=== PATIENT | male | born 1940 | race Caucasian/White ===

== ENCOUNTER 2016-10-13 07:42 | Inpatient (IN) ==
[2016-10-13] MEDS ORDERED: 0.9 % Sodium Chloride 1,000 ML IVC ONE ×3 (07:50→08:21)
[2016-10-13 07:59] LABS: Basophils # 0.1 K/mcL (0.0-0.2); Basophils % 0.4 %; Eosinophils % 0.2 %; Hematocrit 41.8 % (37.5-50.1); Hemoglobin 13.4 g/dL (12.9-16.9); Immature Granulocytes % 1.4 % (0-4); Lymphocytes # 1.7 K/mcL (0.6-4.6); Lymphocytes % 13.5 %; Mean Corpuscular HGB Conc 32.1 g/dL (31.6-35.5); Mean Corpuscular Hemoglobin 29.6 pg (28.0-33.3); Mean Corpuscular Volume 92.3 fL (83.0-100.0); Mean Platelet Volume 10.9 fL (9.4-12.4); Monocytes # 0.8 K/mcL (0.0-1.3); Monocytes % 6.2 %; Neutrophils # 9.8 K/mcL (1.6-8.9); Platelet Count 362 K/mcL (140-400); Red Blood Count 4.53 M/mcL (4.19-5.50); Red Cell Distribution Width 13.9 % (11.5-14.5); Segmented Neutrophils % 78.3 %
[2016-10-13 08:05] LABS: INR 1.3; Prothrombin Time 14.4 Seconds (9.4-12.1)
[2016-10-13 08:07] LABS: Activated Partial Thrombo Time 26.7 Seconds (26.0-36.0)
[2016-10-13 08:09] LABS: Bilirubin,Urine Negative (Negative); Blood,Urine Negative (Negative); Clarity,Urine Clear (Clear); Color,Urine Yellow (Yellow); Glucose,Urine (UA) Normal (Normal); Ketones,Urine Negative (Negative); Leukocyte Esterase,Urine Negative (Negative); Nitrite,Urine Negative (Negative); PH,Urine 5.5 pH Units (5.0-8.0); Protein,Urine 30 mg/dL (Neg-Trace); Urobilinogen,Urine Normal (Normal)
[2016-10-13 08:12] LABS: Bacteria,Urine None Seen per hpf (None-Few); Hyaline Casts,Urine None Seen per lpf (None-Few); Squamous Epithelial Cell,Urine Moderate per lpf (None-Few); WBC,Urine 0-3 per hpf (0-3)
[2016-10-13 08:15] LABS: Albumin 3.2 g/dL (3.5-5.0); Albumin/Globulin Ratio 0.8 (1.1-2.2); Bilirubin,Direct 0.5 mg/dL (0.0-0.5); Bilirubin,Indirect 0.5 mg/dL (0.0-1.2); Calcium 9.9 mg/dL (8.6-10.8); Magnesium 1.6 mg/dL (1.6-2.6); Potassium 4.8 mEq/L (3.5-4.5); Total Protein 7.2 g/dL (6.0-8.3)
--- NOTE | 2016-10-13 08:16 | Emergency Department Note ---
Disposition Clinical Impression: Atrial fibrillation with rapid ventricular response Sepsis Qualifiers: Sepsis type: sepsis due to unspecified organism Qualified Code(s): A41.9 - Sepsis, unspecified organism Congestive heart failure Qualifiers: Congestive heart failure type: unspecified congestive heart failure type Congestive heart failure chronicity: acute Qualified Code(s): I50.9 - Heart failure, unspecified Disposition: Admitted As Inpatient Condition: Critical Time of Disposition: 10:14 General Adult HPI - General Chief complaint: ED Arrhythmia/Palpitations Stated complaint: arrhythmia Time Seen by Provider: 10/13/16 07:48 Source: EMS Mode of arrival: EMS Limitations: altered mental status Nursing Notes Reviewed: Yes Vital Signs Reviewed: Yes - History of Present Illness HPI Narrative: Patient was sent to this emergency department from the [facility]. No documentation of testing or any physician documentation was sent along with the patient. They spoke to our night physician who relayed information to me so everything I have is secondhand. The report was that the patient presented to the [facility] in ventricular tachycardia at a rate of 185. They reportedly gave him amiodarone. Got his heart rate down to the 130s. EMS reports that he was tachycardic on route. According to the night physicians signed out to me, [facility] the [facility]. That is about all the history that I can obtain because the patient is not verbalizing with me. Pt Subjective Complaint: Patient himself has no subjective complaint. He is not verbalizing with me Onset (ago): unknown Pain Scale: 0 Treatments Prior to Arrival: other (Patient was given amiodarone at the outside facility.) - Related Data Home Medications Medication Instructions Recorded Confirmed Benztropine Mesylate 1 mg PO TID 04/02/15 04/02/15 Clopidogrel Bisulfate [Plavix] 75 mg PO DAILY 04/02/15 04/02/15 Docusate Sodium [Colace] 100 mg PO DAILY 04/02/15 04/02/15 Loratadine [Claritin] 10 mg PO DAILY 04/02/15 04/02/15 Metoprolol [Lopressor] 25 mg PO DAILY 04/02/15 04/02/15 Previous Rx's Medication Instructions Recorded Acetaminophen [Tylenol] 650 mg PO Q6HR PRN #0 tablet 04/05/15 Aspirin 81 mg PO DAILY tab.chew 12/30/15 Atorvastatin [Lipitor] 40 mg PO HS tablet 04/05/15 Buspirone HCl [Buspar] 5 mg PO TID #45 tablet 04/05/15 Carbidopa/Levodopa 25/100 [Sinemet 1 each PO TID #90 tablet 04/05/15 25/100] Haloperidol [Haldol] 5 mg PO HS #30 tablet 04/05/15 Nicotine Patch [Nicoderm] 21 mg TD DAILY PRN #0 patch.[id number] 04/05/15 cephALEXin [Keflex] 500 mg PO BID 4 Days 04/05/15 Allergies Allergy/AdvReac Type Severity Reaction Status Date / Time No Known Allergies Allergy Verified 10/13/16 08:58 Limitations: ROS unobtainable due to patients medical condition Past Medical History - Past Medical History Source: old records reviewed, nursing notes reviewed Medical history: Reports: arthritis, cancer, coronary artery disease, dementia, diabetes, hyperlipidemia, hypertension, myocardial infarction, other Surgical history: Reports: angioplasty/stent Psychiatric history: Reports: schizophrenia, other - Social History Smoking Status: Unknown if ever smoked Alcohol use: Reports: unknown Drug use: Reports: unknown Physical Exam - General Limitations: altered mental status General appearance: alert - Head Head exam: atraumatic, normocephalic - Eye Eye exam: Present: PERRL, EOMI. Absent: scleral icterus - ENT ENT exam: mucous membranes dry, TM's normal bilaterally, normal external ear exam - Neck Neck exam: Present: normal inspection. Absent: meningismus - Chest Chest inspection: Present: normal inspection, symmetric chest wall rise. Absent : tenderness - Respiratory Respiratory exam: Present: normal lung sounds bilaterally. Absent: respiratory distress - Cardiovascular Cardiovascular exam: Present: normal rhythm, tachycardia - Abdominal Exam Abdominal exam: Present: soft, Non-Tender - Extremities Exam Extremities exam: Present: normal inspection. Absent: tenderness - Neurological Exam Neurological exam: Present: alert - Skin Skin exam: Present: warm, dry Course Course Narrative: Patient arrives from the [facility]. Reportedly he had a heart rate of 185 and they gave him amiodarone and he came down to 135 and he was transported here. Just by the sound of it it does not sound like he was probably in V. tach but that he had some underlying illness going on and was just in sinus tachycardia with a chronic wide complex. On arrival his heart rate is 140. He has a wide complex tachycardia but it sinus tachycardia. Looking at old EKGs, wide complex is his baseline. He has a temperature of 101. He has altered mental status. I think the patient is septic. I think he has a wide complex sinus tachycardia and no cardiac dysrhythmia. His lactic acid came back at 4. I did a septic workup on the patient. I ordered IV fluids. His blood pressure is fine. Start antibiotics and try to pin down a source. He will need to be admitted to the hospital. - Reevaluation(s) Reevaluation #1: Labs are starting to come back. He has an elevated lactic acid. Arterial blood gas shows a respiratory alkalosis and some hypoxia. Chest x-ray shows pulmonary edema and cardiomegaly. I stopped the sepsis normal saline fluid bolus given that his blood pressure is good but he has pulmonary edema chest x- ray already. Troponin is also mildly elevated. Chest x-ray does not reveal pneumonia and the urinalysis does not reveal UTI. Source is unclear at this time. Time: 08:25 Reevaluation #2: I back and reassessed the patient and find no rales on auscultation but there is some wheezing bilateral. He has no edema in his legs. I looked at the chest x-ray and he does have cardiomegaly and haziness in the right lung field. He cannot really see the left lung field has a big heart. I am not 100% convinced that this is congestive heart failure. I think we need to delineate it because I need to know I can give him the fluid boluses that he would need if he septic due to pneumonia. Therefore medicine and the x-ray and do a CT of his chest to delineate whether these findings on x-ray are truly CHF or pneumonia. In the meantime I ordered CPAP and breathing treatments. Time: 08:45 Reevaluation #3: CAT scan came back confirming the presence of congestive heart failure and not seeming focal infiltrates. It was some ground glass appearance to some areas which could be an infectious process. At this point and not given him any more fluid boluses because his blood pressure is okay and there CHF on chest x-ray. I talked with the hospitalist about management and he did recommend a dose of Lasix and then he would follow the out, from that. He accepted the patient for admission. Put him on a monitor floor. Of note he is DNR CC arrest as documented [facility]. Time: 10:11 Additional Reevaluation(s): Nothing seems to be slowing down the patient's heart rate. I went ahead and tried a dose of Adenocard to see if this was an SVT. What we saw were sawtooth waves as the patient's heart rate went down to the 40s. Now he is back up to the 150 range and its narrow complex consistent with atrial fib/flutter. At this point were going to give him Cardizem 20 mg bolus and started drip at 5 to try and get some rate control to help us treat the congestive heart failure. - Consultations Consultation #1: Joseph aranda, hospitalist - I discussed the case with the hospitalist. We talked about the conflicting picture of sepsis and congestive heart failure. We decided on management. Patient will be admitted to the hospital. Time: 10:11 Vital Signs Temperature 101.2 F H 10/13/16 07:45 Pulse Rate 141 10/13/16 07:45 Respiratory Rate 28 10/13/16 07:45 Blood Pressure 147/97 10/13/16 07:45 O2 Sat by Pulse Oximetry 98 10/13/16 07:45 Temperature 101.2 F H 10/13/16 07:45 Pulse Rate 147 10/13/16 10:47 Respiratory Rate 24 10/13/16 10:47 Blood Pressure 122/77 10/13/16 10:47 O2 Sat by Pulse Oximetry 96 10/13/16 10:47 Oxygen Delivery Oxygen Delivery Bipap Medical Decision Making - Medical Records Medical records reviewed: Yes I reviewed the patient's medical records. - Lab Data Lab results reviewed: Yes I reviewed the patient's lab results. Result diagrams: 10/13/16 07:47 10/13/16 07:47 Lab Results 10/13/16 10/13/16 10/13/16 Range/Units 07:47 07:47 07:47 WBC 12.6 H (4.3-11.1) K/mcL RBC 4.53 (4.19-5.50) M/mcL Hgb 13.4 (12.9-16.9) g/dL Hct 41.8 (37.5-50.1) % MCV 92.3 (83.0-100.0) fL MCH 29.6 (28.0-33.3) pg MCHC 32.1 (31.6-35.5) g/dL RDW 13.9 (11.5-14.5) % Plt Count 362 (140-400) K/mcL MPV 10.9 (9.4-12.4) fL Immature Gran % 1.4 (0-4) % Seg Neutrophils % 78.3 % Lymphocytes % 13.5 % Monocytes % 6.2 % Eosinophils % 0.2 % Basophils % 0.4 % Neutrophils # 9.8 H (1.6-8.9) K/mcL Lymphocytes # 1.7 (0.6-4.6) K/mcL Monocytes # 0.8 (0.0-1.3) K/mcL Eosinophils # 0.0 (0.0-0.6) K/mcL Basophils # 0.1 (0.0-0.2) K/mcL PT 14.4 H (9.4-12.1) Seconds INR 1.3 APTT 26.7 (26.0-36.0) Seconds ABG pH (7.32-7.45) pH Units ABG pCO2 (35-45) mmHg ABG pO2 (85-104) mmHg ABG HCO3 (21-27) mEQ/L ABG Total CO2 (20-26) mEq/L ABG O2 Saturation (95-98) % ABG Base Excess (-2.0 to 3.0) mEq/L Blood Gas Modality Inspired O2 % Sodium 139 (136-145) mEq/L Potassium 4.8 H (3.5-4.5) mEq/L Chloride 106 (98-109) mEq/L Carbon Dioxide 20 (19-29) mEq/L BUN 49 H (8-26) mg/dL Creatinine 1.50 H (0.72-1.25) mg/dL Est GFR ( Amer) 55 L (> 60) Est GFR (Non-Af Amer) 45 L (> 60) BUN/Creatinine Ratio 33 H (6-26) Glucose 305 H (70-99) mg/dL POC Glucose (58-89) Calculated Osmolality 312 H (280-300) Lactic Acid (0.5-2.2) mmol/L Calcium 9.9 (8.6-10.8) mg/dL Phosphorus 3.0 (2.3-4.7) mg/dL Magnesium 1.6 (1.6-2.6) mg/dL Total Bilirubin 1.0 (0.2-1.2) mg/dL Direct Bilirubin 0.5 (0.0-0.5) mg/dL Indirect Bilirubin 0.5 (0.0-1.2) mg/dL AST 15 (5-34) Units/L ALT 21 (0-55) Units/L Alkaline Phosphatase 115 (38-126) Units/L Troponin I (0-0.03) ng/mL B-Natriuretic Peptide (0-100) pg/mL Serum Total Protein 7.2 (6.0-8.3) g/dL Albumin 3.2 L (3.5-5.0) g/dL Globulin 4.0 H (2.4-3.5) g/dL Albumin/Globulin Ratio 0.8 L (1.1-2.2) Urine Color (Yellow) Urine Clarity (Clear) Urine pH (5.0-8.0) pH Units Ur Specific [place] (1.010-1.025) Urine Protein (Neg-Trace) mg/dL Urine Glucose (UA) (Normal) mg/dL Urine Ketones (Negative) mg/dL Urine Blood (Negative) Urine Nitrite (Negative) Urine Bilirubin (Negative) Urine Urobilinogen (Normal) mg/dL Ur Leukocyte Esterase (Negative) Urine Microscopic RBC (0-3) per hpf Urine Microscopic WBC (0-3) per hpf Ur Squamous Epith Cells (None-Few) per lpf Urine Bacteria (None-Few) per hpf Hyaline Casts (None-Few) per lpf Ur Culture Indicated? (NO) 10/13/16 10/13/16 10/13/16 Range/Units 07:47 07:47 07:47 WBC (4.3-11.1) K/mcL RBC (4.19-5.50) M/mcL Hgb (12.9-16.9) g/dL Hct (37.5-50.1) % MCV (83.0-100.0) fL MCH (28.0-33.3) pg MCHC (31.6-35.5) g/dL RDW (11.5-14.5) % Plt Count (140-400) K/mcL MPV (9.4-12.4) fL Immature Gran % (0-4) % Seg Neutrophils % % Lymphocytes % % Monocytes % % Eosinophils % % Basophils % % Neutrophils # (1.6-8.9) K/mcL Lymphocytes # (0.6-4.6) K/mcL Monocytes # (0.0-1.3) K/mcL Eosinophils # (0.0-0.6) K/mcL Basophils # (0.0-0.2) K/mcL PT (9.4-12.1) Seconds INR APTT (26.0-36.0) Seconds ABG pH (7.32-7.45) pH Units ABG pCO2 (35-45) mmHg ABG pO2 (85-104) mmHg ABG HCO3 (21-27) mEQ/L ABG Total CO2 (20-26) mEq/L ABG O2 Saturation (95-98) % ABG Base Excess (-2.0 to 3.0) mEq/L Blood Gas Modality Inspired O2 % Sodium (136-145) mEq/L Potassium (3.5-4.5) mEq/L Chloride (98-109) mEq/L Carbon Dioxide (19-29) mEq/L BUN (8-26) mg/dL Creatinine (0.72-1.25) mg/dL Est GFR ( Amer) (> 60) Est GFR (Non-Af Amer) (> 60) BUN/Creatinine Ratio (6-26) Glucose (70-99) mg/dL POC Glucose (58-89) Calculated Osmolality (280-300) Lactic Acid 4.3 H* (0.5-2.2) mmol/L Calcium (8.6-10.8) mg/dL Phosphorus (2.3-4.7) mg/dL Magnesium (1.6-2.6) mg/dL Total Bilirubin (0.2-1.2) mg/dL Direct Bilirubin (0.0-0.5) mg/dL Indirect Bilirubin (0.0-1.2) mg/dL AST (5-34) Units/L ALT (0-55) Units/L Alkaline Phosphatase (38-126) Units/L Troponin I 1.16 H* (0-0.03) ng/mL B-Natriuretic Peptide 1301 H (0-100) pg/mL Serum Total Protein (6.0-8.3) g/dL Albumin (3.5-5.0) g/dL Globulin (2.4-3.5) g/dL Albumin/Globulin Ratio (1.1-2.2) Urine Color (Yellow) Urine Clarity (Clear) Urine pH (5.0-8.0) pH Units Ur Specific [place] (1.010-1.025) Urine Protein (Neg-Trace) mg/dL Urine Glucose (UA) (Normal) mg/dL Urine Ketones (Negative) mg/dL Urine Blood (Negative) Urine Nitrite (Negative) Urine Bilirubin (Negative) Urine Urobilinogen (Normal) mg/dL Ur Leukocyte Esterase (Negative) Urine Microscopic RBC (0-3) per hpf Urine Microscopic WBC (0-3) per hpf Ur Squamous Epith Cells (None-Few) per lpf Urine Bacteria (None-Few) per hpf Hyaline Casts (None-Few) per lpf Ur Culture Indicated? (NO) 10/13/16 10/13/16 10/13/16 Range/Units 07:48 07:59 08:15 WBC (4.3-11.1) K/mcL RBC (4.19-5.50) M/mcL Hgb (12.9-16.9) g/dL Hct (37.5-50.1) % MCV (83.0-100.0) fL MCH (28.0-33.3) pg MCHC (31.6-35.5) g/dL RDW (11.5-14.5) % Plt Count (140-400) K/mcL MPV (9.4-12.4) fL Immature Gran % (0-4) % Seg Neutrophils % % Lymphocytes % % Monocytes % % Eosinophils % % Basophils % % Neutrophils # (1.6-8.9) K/mcL Lymphocytes # (0.6-4.6) K/mcL Monocytes # (0.0-1.3) K/mcL Eosinophils # (0.0-0.6) K/mcL Basophils # (0.0-0.2) K/mcL PT (9.4-12.1) Seconds INR APTT (26.0-36.0) Seconds ABG pH 7.44 (7.32-7.45) pH Units ABG pCO2 27 L (35-45) mmHg ABG pO2 55 L (85-104) mmHg ABG HCO3 18.3 L (21-27) mEQ/L ABG Total CO2 19.1 L (20-26) mEq/L ABG O2 Saturation 89 L (95-98) % ABG Base Excess -4.6 L (-2.0 to 3.0) mEq/L Blood Gas Modality [place] Inspired O2 36 % Sodium (136-145) mEq/L Potassium (3.5-4.5) mEq/L Chloride (98-109) mEq/L Carbon Dioxide (19-29) mEq/L BUN (8-26) mg/dL Creatinine (0.72-1.25) mg/dL Est GFR ( Amer) (> 60) Est GFR (Non-Af Amer) (> 60) BUN/Creatinine Ratio (6-26) Glucose (70-99) mg/dL POC Glucose 312 H (58-89) Calculated Osmolality (280-300) Lactic Acid (0.5-2.2) mmol/L Calcium (8.6-10.8) mg/dL Phosphorus (2.3-4.7) mg/dL Magnesium (1.6-2.6) mg/dL Total Bilirubin (0.2-1.2) mg/dL Direct Bilirubin (0.0-0.5) mg/dL Indirect Bilirubin (0.0-1.2) mg/dL AST (5-34) Units/L ALT (0-55) Units/L Alkaline Phosphatase (38-126) Units/L Troponin I (0-0.03) ng/mL B-Natriuretic Peptide (0-100) pg/mL Serum Total Protein (6.0-8.3) g/dL Albumin (3.5-5.0) g/dL Globulin (2.4-3.5) g/dL Albumin/Globulin Ratio (1.1-2.2) Urine Color Yellow (Yellow) Urine Clarity Clear (Clear) Urine pH 5.5 (5.0-8.0) pH Units Ur Specific [place] 1.030 H (1.010-1.025) Urine Protein 30 H (Neg-Trace) mg/dL Urine Glucose (UA) Normal (Normal) mg/dL Urine Ketones Negative (Negative) mg/dL Urine Blood Negative (Negative) Urine Nitrite Negative (Negative) Urine Bilirubin Negative (Negative) Urine Urobilinogen Normal (Normal) mg/dL Ur Leukocyte Esterase Negative (Negative) Urine Microscopic RBC 3-5 H (0-3) per hpf Urine Microscopic WBC 0-3 (0-3) per hpf Ur Squamous Epith Cells Moderate H (None-Few) per lpf Urine Bacteria None Seen (None-Few) per hpf Hyaline Casts None Seen (None-Few) per lpf Ur Culture Indicated? NO (NO) - Radiology Data Radiology results reviewed: Yes I reviewed the patient's radiology results. - EKG Data EKG #1 EKG attestation: Yes I reviewed and interpreted this EKG. EKG shows normal: sinus rhythm Rate: tachycardia [place]/QRS: left axis deviation, LBBB Interpretation: other (Patient has a wide complex tachycardia consistent with left bundle branch block. This does not appear to be V. tach. The QRS complexes are consistent with EKGs as far back as 2014.) EKG #2 EKG attestation: Yes I reviewed and interpreted this EKG. EKG shows normal: axis, QRS complexes Rhythm: A.Fib Interpretation: other (Repeat EKG done after administration of Adenocard shows atrial flutter/atrial fibrillation with rapid ventricular response at a rate of 150.) Critical Care Time Critical Care Time: Yes Total Critical Care Time: 60 Attestation: A should arise was sepsis and congestive heart failure. Tachycardic and ill. I spent a lot of time doing serial exams on the patient, gathering information, ordering lab tests interpreting them, initiate treatment, arranging admission.
[2016-10-13 08:21] LABS: ABG Base Excess -4.6 mEq/L (-2.0 to 3.0); ABG HCO3 18.3 mEQ/L (21-27); ABG Oxygen Saturation 89 % (95-98); ABG PCO2 27 mmHg (35-45); ABG PH 7.44 pH Units (7.32-7.45); ABG PO2 55 mmHg (85-104); ABG TCO2 19.1 mEq/L (20-26); Blood Gas FiO2 36 %
[2016-10-13] MEDS ORDERED: Vancomycin 1,750 MG in D5% in Water 500 ML IVPB ONE (08:25)
[2016-10-13] MEDS ORDERED: Piperacillin/Tazobactam 3.375 GM in D5% in Water (Mini-Bag+) 100 ML IVPB ONE (08:25)
[2016-10-13] MEDS ORDERED: Levofloxacin 750 MG/150 ML 750 MG/150 ML BAG IVPB ONE (08:25)
[2016-10-13] MEDS ORDERED: Ipratropium/Albuterol Neb 3 ML ONE (08:43)
[2016-10-13] MEDS ORDERED: Ipratropium/Albuterol Neb 3 ML IH ONE (08:45)
[2016-10-13] MEDS ORDERED: Furosemide 40 MG/4 ML VIAL IVP ONE ×2 (10:09→23:15)
[2016-10-13] MEDS ORDERED: Ondansetron 4 MG/2 ML VIAL IVP PRN (10:30)
[2016-10-13] MEDS ORDERED: Naloxone 0.4 MG/ML INJ IVP PRN (10:30)
[2016-10-13] MEDS ORDERED: *HR* Morphine 2 MG/ML SYRINGE IVP PRN (10:30)
[2016-10-13] MEDS ORDERED: *HR* Adenosine 6 MG/2 ML SYRINGE IVP ONE (10:32)
[2016-10-13] MEDS ORDERED: Acetaminophen 325 MG TABLET PO PRN (10:34)
[2016-10-13] MEDS ORDERED: Nicotine 21 MG PATCH.TD24 TD PRN (10:34)
[2016-10-13] MEDS ORDERED: *HR* Adenosine 6 MG/2 ML VIAL IVP ONE (10:39)
[2016-10-13] MEDS ORDERED: *HR* Heparin 5,000 UNIT/ML VIAL IVP PRN ×2 (12:13)
[2016-10-13] MEDS ORDERED: *HR* Heparin 5,000 UNIT/ML VIAL IVP ONE (12:13)
[2016-10-13] MEDS: Aspirin 81 MG TAB.CHEW PO SCH (12:46)
[2016-10-13] MEDS: Heparin 25,000 UNIT/500 ML D5W 25,000 UNIT/500 ML MLS IVC SCH (12:50)
--- NOTE | 2016-10-13 12:52 | Internal Med History&Physical ---
Date of Encounter: 10/13/16 Time of Encounter: 12:30 Assessment and Plan (1) Atrial fibrillation with rapid ventricular response Current visit: Yes Status: Acute Atrial fibrillation with RVR - probably due to CHF, unknown duration and unknown chronicity Rhythm seems to be atrial flutter with RVR at times Patient apparently had a run of V. tach at the [facility] - was given IV amiodarone Continue IV Cardizem drip Continue IV heparin drip as per protocol Cardiology consult Echocardiogram pending Cardiac telemetry (2) Congestive heart failure Current visit: Yes Status: Acute Acute exacerbation of CHF, unspecified - causing pulmonary edema and shortness of breath Continue IV Lasix, metoprolol Cardiology consult Strict I's and O's, Hernandez catheter, fluid restriction Echocardiogram pending EKG - atrial fibrillation with RVR BN peptide - 1301 Cardiac telemetry, labs in a.m. Qualifiers: Congestive heart failure type: unspecified congestive heart failure type Congestive heart failure chronicity: acute Qualified Code(s): I50.9 - Heart failure, unspecified (3) Elevated troponin Current visit: No Status: Acute Elevated troponin - rule out ACS - associated with shortness of breath Likely due to her atrial fibrillation with RVR and CHF EKG - atrial fibrillation with RVR Trend troponin IV heparin as per protocol for ACS Continue Aspirin, statin and metoprolol Echocardiogram pending Cardiology consult (4) Coronary artery disease Current visit: No Status: Chronic History of coronary artery disease status post stents Continue aspirin, statin and metoprolol Qualifiers: Coronary Disease-Associated Artery/Lesion type: [place] artery [place] vs. transplanted heart: [place] heart Associated angina: without angina Qualified Code(s): I25.10 - Atherosclerotic heart disease of [place] coronary artery without angina pectoris (5) Dementia associated with other underlying disease Current visit: No Status: Chronic Moderate dementia - without behavioral disturbances at present Continue home medications Qualifiers: Dementia behavioral disturbance: without behavioral disturbance Qualified Code(s): F02.80 - Dementia in other diseases classified elsewhere without behavioral disturbance (6) Dyslipidemia Current visit: No Status: Chronic Continue statin (7) Hypertension Current visit: No Status: Chronic Essential hypertension, controlled, continue home meds, monitor Qualifiers: Hypertension type: essential hypertension Qualified Code(s): I10 - Essential (primary) hypertension (8) Parkinson's syndrome Current visit: No Status: Chronic Continue home dose of carbidopa levodopa Internal Medicine - H&P: HPI Chief complaint: Shortness of breath Admitted From: Emergency Dept Plans for Post Hospital Care: Transfer [facility] Facility History of present illness: Mr. Squires is a 75 year old male with PMH of HTN, HLD, DM, CAD, Dementia, Systolic CHF, Parkinson disease and Schizoid personality disorder. Patient presents to the ED from [facility]. Patient is unable to provide any history due to medical condition. Patient is on BiPAP and is in mild distress due to difficulty breathing. Does not verbalzie. All history is obtained form medical records and patient's brother, who is the power of secretary bookkeeper. Patient's brother states he was called by the [facility] long[facility]term [facility] facility, stating that patient was short of breath and had difficulty breathing. Patient was intially taken to the ED at [facility]. As per EMS records patient initially may have had V-tach and elevated troponin. Was given Aspirin and IV Amiodarone at the [facility]. Patient was then transferred to [facility] ED. Initial evaluation here revealed a.fib with RVR and elevated troponin again. He also has elevated lactic acid. ABG revealed resp alkalosis and hypoxia. CXR shows pulmonary edema. CT Chest revealed edema, b/l pleural effusions and cardiomegaly. Has been given IV Cardizem, Adenosine and Lasix in the ED. He is on BiPAP at present. Patient is being admitted for atrial fibrillation with RVR, CHF and elevated troponin. Cardiology consult pending. Echocardiogram pending. IV Cardizem drip to be continued and patient will also be on IV heparin drip per ACS protocol. Unable to obtain any other history at this time. Patient's brother has been explained about patient's guarded condition and plan of care. Understood and agreed. No unanswered questions. CODE STATUS - DO NOT RESUSCITATE and DO NOT INTUBATE-CC Arrest as per documentation and according to patient's brother. Past Med Surg Social Fam HX - Past Medical History Medical history: arthritis, cancer, coronary artery disease, dementia, diabetes , hyperlipidemia, hypertension, myocardial infarction, other (parkinson disease) Psychiatric history: schizophrenia, other - Past Surgical History Surgical History: angioplasty/stent - Social History Smoking Status: Unknown if ever smoked Alcohol use: unknown Drug use: unknown Internal Medicine - H&P: Meds Clopidogrel Bisulfate [Plavix] 75 mg PO DAILY 04/02/15 [History] Aspirin 81 mg PO DAILY tab.chew 04/05/15 [Rx] Atorvastatin [Lipitor] 40 mg PO HS tablet 04/05/15 [Rx] Benztropine Mesylate 0.5 mg PO TID 10/13/16 [History] Buspirone HCl [Buspar] 10 mg PO BID 10/13/16 [History] Cholecalciferol (D-3) [Vitamin D] 1,000 unit PO DAILY 10/13/16 [History] Cyanocobalamin (B-12) [Vitamin B12] 1,000 mcg PO DAILY 10/13/16 [History] Metoprolol Succinate 25 mg PO DAILY 10/13/16 [History] OLANZapine [Zyprexa] 2.5 mg PO HS 10/13/16 [History] Sennosides/Docusate Sodium [Senna-Docusate Sodium Tablet] 2 tab PO HS 10/13/16 [ History] Simethicone [Gas-X] 80 mg PO TIDWM 10/13/16 [History] metFORMIN [Glucophage] 500 mg PO BIDWM 10/13/16 [History] Allergies No Known Allergies Allergy (Verified 10/13/16 11:01) ROS unobtainable: due to mental status All Systems PM: A 10-system review of systems was performed and is negative for pertinent findings except as documented above in the HPI. Review of systems: patient is unable to provide any history. All history obtained from medical records and patient's brother. - Constitutional Vitals: Temp Pulse Resp BP Pulse Ox 98.2 F 145 33 112/82 97 10/13/16 11:45 10/13/16 11:45 10/13/16 11:45 10/13/16 11:45 10/13/16 11:45 General appearance: Present: A&O X 0, mild distress Exam: awake, chronically ill-appearing, in obvious discomfort due to shortness of breath, unable to provide any history - Head Head exam: Present: atraumatic - Eye Eye exam: Absent: scleral icterus - Respiratory Respiratory exam: Present: accessory muscle use, rales (mild b/l), respiratory distress, wheezes (mild b/l), tachypnea - Cardiovascular Cardiovascular exam: Present: irregular rhythm, +S1, +S2, systolic murmur, tachycardia - GI/Abdominal GI/Abdominal exam: Present: soft, no peritoneal signs. Absent: distended, firm , guarding, rigid, tenderness - Extremities Exam Extremities exam: Present: pedal edema (mild b/l), radial pulses palpable and symetrical. Absent: cyanotic, tenderness - Neurological Exam Neurological exam: Absent: facial droop Additional comments: awake, ill-appearing, does not verbalize well, does not follow verbal commands well, no obvious deficits, dementia Internal Med - H&P Results - Labs CBC & Chem 7: 10/13/16 07:47 10/13/16 07:47 - EKG Data -: EKG Interpreted by Myself
[2016-10-13] MEDS ORDERED: Perflutren Lipid Microsphere 1.3 ML in 0.9 % Sodium Chloride 8.7 ML IVP ONE (15:13)
[2016-10-13] MEDS: Carbidopa/Levodopa 25/100 TABLET PO SCH ×2 (16:00→20:40)
[2016-10-13] MEDS: Ipratropium/Albuterol Neb 3 ML IH SCH ×2 (16:14→22:17)
[2016-10-13] MEDS ORDERED: D5% in Water 1,000 ML IVC PRN (16:17)
[2016-10-13] MEDS ORDERED: Dextrose Gel 15 GM PO PRN ×2 (16:17)
[2016-10-13] MEDS ORDERED: *HR* Dextrose 50 % in Water (Syg) 50 ML SYRINGE IVP PRN (16:17)
--- NOTE | 2016-10-13 16:49 | Cardiology Consult Note ---
Date of Encounter: 10/13/16 Time of Encounter: 16:00 Assessment and Plan (1) Elevated troponin Current Visit: No Status: Acute Patient presents with elevated troponin in setting of ARF. He has known CAD having undergone PCI to LCx in 2011 at [facility]. He was hospitalized at [facility] in March 2015 documenting a known history of cardiomyopathy. Recommend continuing heparin gtt, asa and statin. Will await echo findings. However, given patient's mental status would likely recommend conservative medical management. It is unlikely that he would be able to lay still for cath. The Guardian was present at the bedside who expressed understanding. (2) Congestive heart failure Current Visit: Yes Status: Acute Has history of cardiomyopathy, presumed ischemic. Reported EF 19% at [facility] in 2011. Await echo findings. However, CT chest suggest the presence of heart failure. BNP also elevated. Recommend diuresis with IV lasix and watching renal function. Continue beta destinee. Add ACEI when kidneys allow. Continue statin, antiplatelet agent. Qualifiers: Congestive heart failure type: unspecified congestive heart failure type Congestive heart failure chronicity: acute Qualified Code(s): I50.9 - Heart failure, unspecified (3) Pericardial effusion Current Visit: Yes Status: Acute Patient has a moderate pericardial effusion on CT chest. Will await echo findings. However, BPs have been stable. There is no clinical evidence for tamponade. Noted, is concern for an infectious etiology with fever and leukocytosis. Will defer to primary team for management of possible infection. (4) Atrial fibrillation and flutter Current Visit: Yes Status: Acute Patient is presently in AFIB with HR 80-100's at the bedside. This appears possibly to be a new diagnosis. The Guardian was not aware of being told this previously. He initially presented with atrial flutter. He has transient LBBB which was previously documented in 2015. Suspect rhythm disturbance was precipitated by fever and underlying infectious etiology. For now, continue BB and uptitrate if possible and wean cardizem gtt. He is presently on heparin which we can continue. May need to consider full anticoagulation although he may not be a good candidate (CHADS=4). Discussion w patient/family: The assessment and plan as outlined above was discussed with the patient and/or family members who expressed understanding and agreement. All questions were answered. Thank you for involving us in the care of your patient. Please call with any questions. History of Present Illness Consult date: 10/13/16 Requesting physician: Trell Arrieta Consult reason: Arrhythmia Chief complaint: Baseline cognitive impairment, unable to provide CC History of present illness: Mr. 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 History taken mainly from ER and H&P as well as from patient's Guardian. The patient has altered mentation and does not provide history taking. He is oriented to person only. Per ER notes, patient reportedly had heart rate of 185 at DC and was given amiodarone and transferred to [facility]. On arrival, he was noted to have heart rates in the 140's. ECG's have been reviewed demonstrating LBBB and IVCD, regular rhythm with probable AFL. LBBB has been previously documented. He has known cardiomyopathy, presumed ischemic with EF around 19% in 2012 while in [place] per medical records. He was also noted to be febrile, Temp 101F and have altered mental status as well as ARF. Troponin 1.16, 1.17. At the bedside, the patient is having his echo performed. He is restless, trying to climb out of bed. His Guardian is present. He says that his mental state is near baseline. The patient has no specific complaints but does not answer questions appropriately. Past Med Surg Social Fam HX - Past Medical History Source: old records reviewed, obtained from family Medical history: arthritis, cancer, coronary artery disease, dementia, diabetes , hyperlipidemia, hypertension, myocardial infarction, other Psychiatric history: schizophrenia, other - Past Surgical History Surgical History: angioplasty/stent - Social History Smoking Status: Never smoker Alcohol use: unknown Drug use: none - Family History Brother Adopted: [place]: BRIDGET RODRIGUEZ Age: 74 Family Member Ethnicity: Non- Living Status: Still Living Hx Family Cardiac Disorders: Yes Hx Family Respiratory Disorders: Yes Hx Family Cancer: Yes Hx Family GI Disorders: No Hx Family Genitourinary Disorders: No Hx Family Endocrine Disorder: No Hx Family Musculoskeletal Disorders: No Hx Family Neuromuscular Disorders: No Hx Family Neurologic Disorders: No Hx Family HEENT Disorders: No Hx Family Autoimmune Disorders: No Hx Family Reproductive Disorders: No Hx Family Psychosocial Disorders: Yes Hx Family Medical Disorders: Yes Medications and Allergies Clopidogrel Bisulfate [Plavix] 75 mg PO DAILY 04/02/15 [History] Aspirin 81 mg PO DAILY tab.chew 04/05/15 [Rx] Atorvastatin [Lipitor] 40 mg PO HS tablet 04/05/15 [Rx] Benztropine Mesylate 0.5 mg PO TID 10/13/16 [History] Buspirone HCl [Buspar] 10 mg PO BID 10/13/16 [History] Cholecalciferol (D-3) [Vitamin D] 1,000 unit PO DAILY 10/13/16 [History] Cyanocobalamin (B-12) [Vitamin B12] 1,000 mcg PO DAILY 10/13/16 [History] Metoprolol Succinate 25 mg PO DAILY 10/13/16 [History] OLANZapine [Zyprexa] 2.5 mg PO HS 10/13/16 [History] Sennosides/Docusate Sodium [Senna-Docusate Sodium Tablet] 2 tab PO HS 10/13/16 [ History] Simethicone [Gas-X] 80 mg PO TIDWM 10/13/16 [History] metFORMIN [Glucophage] 500 mg PO BIDWM 10/13/16 [History] Allergies No Known Allergies Allergy (Verified 10/13/16 11:01) ROS unobtainable: due to mental status All Systems Review: A 10-system review of systems was performed and is negative for pertinent findings except as documented above in the HPI. - Cardiovascular Cardiovascular: as per HPI Physical Examination Vital Signs, Last 4 Hours Temp Pulse Resp BP Pulse Ox 10/13/16 16:15 30 108/55 100 10/13/16 15:55 98.0 F 102 33 112/62 99 10/13/16 15:15 113 21 114/58 94 10/13/16 14:30 60 99/48 10/13/16 14:00 81 133/63 10/13/16 13:30 147 110/67 10/13/16 13:15 146 106/72 10/13/16 13:00 150 108/70 General: Conversant, No Apparent Distress HEENT: Atraumatic, Normocephaly Neck: Other (JVP difficult to appreciate - patient restless) Cardiac: Other (irregularly irregular, no appreciable murmur) Lungs: Other (diminished breath sounds with poor inspiratory effort) Neuro: Alert and responsive Abdomen: Soft, Other (bowel sounds present) Extremities: No Edema, Other (distal pulses not well obtained - patient restless ) Results 10/13/16 07:47 10/13/16 07:47 Lab Results 10/13/16 13:42 Troponin I 1.17 H* - Imaging and Cardiology Echo: report reviewed (2014) Other Results: Chest CT reviewed - EKG Interpretation EKG results cardiology: personally reviewed (ECG from 10/13 @ 1047 demonstrates HR 147, IVCD and probable AFL, ST-T wave nonspecific abnormalities. ECG from 10/13 @ 7:45 demonstrates HR 145, LBBB, regular rhythm with nonspecific ST-T wave abnormalities and probable AFL), other (At the bedside, the patient is in AFIB, HR 80-100's) Consult Discharge Plan - Plan [facility]errals: [facility] [Primary Care Provider] -
[2016-10-13] MEDS ORDERED: *HR* LORazepam 2 MG/ML VIAL IVP ONE (17:14)
[2016-10-13] MEDS: Insulin LISPRO 300 UNITS/3 ML VIAL SQ SCH ×2 (17:28→20:50)
[2016-10-13] MEDS: Famotidine 20 MG/2 ML VIAL IVP SCH (17:29)
[2016-10-13] MEDS ORDERED: Famotidine 20 MG/2 ML VIAL IVP SCH (18:00)
[2016-10-13 18:05] LABS: Hemoglobin A1C 6.8 %
[2016-10-13] MEDS ORDERED: *HR* Digoxin 0.5 MG/2 ML AMPUL IVP ONE ×2 (20:25→22:49)
[2016-10-13] MEDS: Furosemide 40 MG/4 ML VIAL IVP SCH (20:40)
[2016-10-13] MEDS: OLANZapine 5 MG TAB.RAPDIS PO SCH (20:55)
[2016-10-13] MEDS ORDERED: Amiodarone Premix 360 MG/200 ML BAG IVC ONE (23:33)
[2016-10-14] MEDS: Amiodarone Premix 360 MG/200 ML BAG IVC SCH ×3 (00:04→16:11)
[2016-10-14] MEDS ORDERED: Vancomycin 1,500 MG in D5% in Water 250 ML IVPB SCH (01:00)
[2016-10-14] MEDS ORDERED: *HR* LORazepam 2 MG/ML VIAL ONE (01:58)
[2016-10-14] MEDS ORDERED: *HR* LORazepam 2 MG/ML VIAL IVP ONE (02:02)
[2016-10-14] MEDS: Piperacillin/Tazobactam 3.375 GM in D5% in Water (Mini-Bag+) 100 ML IVPB SCH ×3 (02:06→16:10)
[2016-10-14] MEDS: Vancomycin 1,750 MG in D5% in Water 500 ML IVPB SCH (02:13)
[2016-10-14 02:47] LABS: Bilirubin,Urine Negative (Negative); Blood,Urine Large (Negative); Clarity,Urine Cloudy (Clear); Color,Urine Yellow (Yellow); Glucose,Urine (UA) Normal (Normal); Ketones,Urine Negative (Negative); Leukocyte Esterase,Urine Small (Negative); Nitrite,Urine Negative (Negative); PH,Urine 5.5 pH Units (5.0-8.0); Protein,Urine 30 mg/dL (Neg-Trace); Specific Gravity,Urine 1.012 (1.010-1.025); Urobilinogen,Urine Normal (Normal)
[2016-10-14 02:53] LABS: Amorphous Sediment,Urine Few (Few); RBC,Urine TNTC per hpf (0-3)
[2016-10-14 02:54] LABS: Hyaline Casts,Urine Few per lpf (None-Few); Mucus,Urine Few (Few)
[2016-10-14] MEDS: Ipratropium/Albuterol Neb 3 ML IH SCH ×4 (04:01→21:51)
[2016-10-14 04:47] LABS: Basophils % 0.4 %; Eosinophils # 0.2 K/mcL (0.0-0.6); Eosinophils % 1.5 %; Hematocrit 35.1 % (37.5-50.1); Immature Granulocytes % 1.2 % (0-4); Lymphocytes % 9.8 %; Mean Corpuscular HGB Conc 31.3 g/dL (31.6-35.5); Mean Corpuscular Hemoglobin 30.2 pg (28.0-33.3); Mean Corpuscular Volume 96.4 fL (83.0-100.0); Mean Platelet Volume 11.4 fL (9.4-12.4); Monocytes # 0.8 K/mcL (0.0-1.3); Monocytes % 8.6 %; Neutrophils # 7.6 K/mcL (1.6-8.9); Nucleated Red Blood Cells 0.2 /100 WBC (0); Platelet Count 193 K/mcL (140-400); Red Blood Count 3.64 M/mcL (4.19-5.50); Red Cell Distribution Width 14.2 % (11.5-14.5); Segmented Neutrophils % 78.5 %
[2016-10-14 04:53] LABS: INR 1.5
[2016-10-14 04:56] LABS: Activated Partial Thrombo Time 51.8 Seconds (26.0-36.0)
[2016-10-14] MEDS: Famotidine 20 MG/2 ML VIAL IVP SCH ×2 (05:56→16:12)
[2016-10-14 07:03] LABS: Albumin 2.8 g/dL (3.5-5.0); Albumin/Globulin Ratio 0.8 (1.1-2.2); Alkaline Phosphatase 87 Units/L (38-126); Aspartate Amino Transferase 16 Units/L (5-34); BUN/Creatinine Ratio 32 (6-26); Bilirubin,Total 0.8 mg/dL (0.2-1.2); Blood Urea Nitrogen 51 mg/dL (8-26); Calcium 8.6 mg/dL (8.6-10.8); Carbon Dioxide 23 mEq/L (19-29); Chloride 103 mEq/L (98-109); Globulin 3.5 g/dL (2.4-3.5); Glucose 196 mg/dL (70-99); Magnesium 1.3 mg/dL (1.6-2.6); Osmolality,Calculated 305 (280-300); Sodium 138 mEq/L (136-145); Total Protein 6.3 g/dL (6.0-8.3); eGFR For African Americans 51 (> 60); eGFR For Non-African Americans 42 (> 60)
[2016-10-14 07:04] LABS: Alanine Aminotransferase < 6 Units/L (0-55)
[2016-10-14] MEDS: Insulin LISPRO 300 UNITS/3 ML VIAL SQ SCH ×4 (08:41→22:59)
[2016-10-14] MEDS: Carbidopa/Levodopa 25/100 TABLET PO SCH ×3 (08:45→23:00)
[2016-10-14] MEDS: Furosemide 40 MG/4 ML VIAL IVP SCH ×2 (08:46→23:01)
[2016-10-14] MEDS: Aspirin 81 MG TAB.CHEW PO SCH (08:47)
[2016-10-14] MEDS: Magnesium Sulfate 2 GM in D5% in Water 100 ML IVPB SCH ×2 (08:53→09:52)
[2016-10-14 10:12] LABS: Basophils % 0.3 %; Eosinophils # 0.2 K/mcL (0.0-0.6); Eosinophils % 1.8 %; Hemoglobin 11.3 g/dL (12.9-16.9); Immature Granulocytes % 0.7 % (0-4); Lymphocytes # 1.1 K/mcL (0.6-4.6); Lymphocytes % 10.4 %; Mean Corpuscular HGB Conc 33.2 g/dL (31.6-35.5); Mean Corpuscular Hemoglobin 30.3 pg (28.0-33.3); Mean Corpuscular Volume 91.2 fL (83.0-100.0); Mean Platelet Volume 11.1 fL (9.4-12.4); Monocytes # 0.8 K/mcL (0.0-1.3); Monocytes % 7.3 %; Neutrophils # 8.6 K/mcL (1.6-8.9); Platelet Count 231 K/mcL (140-400); Red Blood Count 3.73 M/mcL (4.19-5.50); Red Cell Distribution Width 14.1 % (11.5-14.5); Segmented Neutrophils % 79.5 %
[2016-10-14 10:14] LABS: Calcium 8.4 mg/dL (8.6-10.8); Potassium 3.8 mEq/L (3.5-4.5)
--- NOTE | 2016-10-14 10:26 | Cardiology Progress Note ---
Date of Encounter: 10/14/16 Time of Encounter: 09:30 Assessment and Plan (1) Elevated troponin Current Visit: Yes Status: Acute Patient presents with elevated troponin in setting of GRANT on CKD, sepsis, and afib/flutter with RVR. This likely represents demand ischemia. He has known CAD having undergone PCI to LCx in 2011 at [facility] , EF at that time reportedly 19%. TTE: EF 25-30%, severely dilated LA, mild AR/MR, moderate to large pericardial effusion without tamponade. Continue asa, statin, plavix and betablocker. Recommend continuation of IV heparin gtt for at least 48 hours. Code status [id number] DNI; patient has baseline dementia. Recommendations for medical therapy discussed with Dr. Kuhn and guardian on 10/13/16 who agreed. No indications for cardiac rehab at this time. (2) Atrial fibrillation and flutter Current Visit: Yes Status: Acute Suspect new diagnosis. He initially presented with atrial flutter with transient LBBB which was previously documented in 2014. Avg HR 129 overnight, presently low 100's upon exam, afib. Recommend rate control strategy, will increase betablocker to BID dosing, continue amiodarone gtt. Avoid CCB given hx of cardiomyopathy. CHA2Ds Vasc= 5. Poor long-term candidate for AC d/t hx of frequent falls, poor functional status, and dementia. Continue heparin gtt for now, will further review with Dr. Barnes. On asa and plavix. (3) Congestive heart failure Current Visit: Yes Status: Acute Has history of cardiomyopathy, presumed ischemic. Reported EF 19% at [facility] in 2011. TTE; EF 25-30%. Continue lopressor for now, recommend changing to Toprol XL when BP and HR improved. No ACEi/ARB d/t CKD. Avoid diuresis d/t effusion. Strict I&O, daily weights, and Na restriction diet. Qualifiers: Congestive heart failure type: systolic Congestive heart failure chronicity : acute on chronic Qualified Code(s): I50.23 - Acute on chronic systolic ( congestive) heart failure (4) Pericardial effusion Current Visit: Yes Status: Acute Patient has a moderate pericardial effusion on CT chest. BP stable, adequate urine output. HR low 100's, afib, upon exam. TTE 10/13/16: LVEF 25-30%, severely dilated LA, mild AR/MR, moderate to large circumferential pericardial effusion without tamponade. Discussed with Dr. Barnes, continue to monitor for now. Repeat TTE in 2 days to re -evaluate effusion. Discussion w patient/family: The assessment and plan as outlined above was discussed with the patient and/or family members who expressed understanding and agreement. All questions were answered. Thank you for involving us in the care of your patient. Please call with any questions. The patient will be discussed and reviewed with Dr. Barnes; changes to be made accordingly. Subjective Principal diagnosis: Sepsis, afib/flutter Interval history: Seen and examined. 1:1 sitter at bedside. Patient has baseline dementia, AMS. Family/guardian not present at beside. Patient is drowsy, on Bipap. Objective Vital Signs, Last 4 Hours Temp Pulse Resp BP Pulse Ox 10/14/16 09:59 137 28 95/55 100 10/14/16 09:13 134 28 108/67 100 10/14/16 09:05 128 19 108/67 96 10/14/16 08:05 28 99/66 99 10/14/16 07:00 97.6 F 108 28 82/53 97 General: Other (drowsy, on Bipap) Cardiac: Other (irregularly irregular) Lungs: Other (Diminished) Neuro: Other (confused) Abdomen: Soft Skin: No rashes noted on visualized skin Musculoskeletal: No Chest Wall Tenderness Extremities: Other (mild BLE edema) Results 10/14/16 09:53 10/14/16 09:53 Lab Results 10/13/16 10/13/16 10/13/16 13:42 19:12 20:12 WBC Hgb Hct Plt Count INR APTT TNP Sodium Potassium Chloride Carbon Dioxide BUN Creatinine Glucose Calcium Magnesium Total Bilirubin AST ALT Alkaline Phosphatase Troponin I 1.17 H* 1.99 H* 10/13/16 10/14/16 10/14/16 21:31 01:35 04:12 WBC 9.7 Hgb 11.0 L D Hct 35.1 L Plt Count 193 INR APTT 30.2 Sodium Potassium Chloride Carbon Dioxide BUN Creatinine Glucose Calcium Magnesium Total Bilirubin AST ALT Alkaline Phosphatase Troponin I 1.89 H* 10/14/16 10/14/16 10/14/16 04:12 05:37 09:53 WBC 10.8 Hgb 11.3 L Hct 34.0 L Plt Count 231 INR 1.5 APTT 51.8 H D Sodium 138 Potassium 4.0 Chloride 103 Carbon Dioxide 23 BUN 51 H Creatinine 1.59 H Glucose 196 H Calcium 8.6 Magnesium 1.3 L Total Bilirubin 0.8 AST 16 ALT < 6 Alkaline Phosphatase 87 Troponin I 10/14/16 10/14/16 09:53 09:53 WBC Hgb Hct Plt Count INR APTT 27.7 Sodium 136 Potassium 3.8 Chloride 103 Carbon Dioxide 22 BUN 50 H Creatinine 1.42 H Glucose 152 H Calcium 8.4 L Magnesium Total Bilirubin AST ALT Alkaline Phosphatase Troponin I Active Medications Acetaminophen (Tylenol) 650 mg PO Q6HR PRN PRN Reason: Mild Pain (1-3) Stop: 04/14/17 10:35 Albuterol/Ipratropium (Duoneb) 3 ml IH [id number] [facility] PRN Reason: Protocol Stop: 04/14/17 16:01 Last Admin: 10/14/16 04:01 Dose: 3 ml Aspirin (Aspirin) 81 mg PO DAILY [facility] Stop: 04/14/17 10:46 Last Admin: 10/14/16 08:47 Dose: Not Given Atorvastatin Calcium (Lipitor) 40 mg PO HS [facility] Stop: 04/14/17 10:46 Last Admin: 10/13/16 20:39 Dose: 40 mg Benztropine Mesylate (Cogentin) 1 mg PO TID [facility] Stop: 04/14/17 15:01 Last Admin: 10/14/16 08:47 Dose: Not Given Buspirone HCl (Buspar) 5 mg PO TID [facility] Stop: 04/14/17 15:01 Last Admin: 10/14/16 08:47 Dose: Not Given Carbidopa/Levodopa (Sinemet) 1 each PO TID [facility] Stop: 04/14/17 15:01 Last Admin: 10/14/16 08:45 Dose: Not Given Clopidogrel Bisulfate (Plavix) 75 mg PO DAILY [facility] Stop: 04/14/17 10:46 Last Admin: 10/14/16 08:46 Dose: Not Given Dextrose/Water (Dextrose 50% (Syg)) 25 ml IVP AD PRN PRN Reason: Hypoglycemia Stop: 04/14/17 16:18 Docusate Sodium (Colace) 100 mg PO DAILY [facility] PRN Reason: Protocol Stop: 04/15/17 09:01 Last Admin: 10/14/16 08:46 Dose: Not Given Famotidine (Pepcid) 10 mg IVP Q12HR [facility] Stop: 04/14/17 18:01 Last Admin: 10/14/16 05:56 Dose: 10 mg Furosemide (Lasix) 40 mg IVP BID [facility] Stop: 04/14/17 21:01 Last Admin: 10/14/16 08:46 Dose: Not Given Glucagon (Glucagen) 1 mg IM ONCE PRN PRN Reason: Hypoglycemia Stop: 04/14/17 16:18 Glucose (Gluctose) 15 gm PO ONCE PRN PRN Reason: Hypoglycemia Stop: 04/14/17 16:18 Glucose (Gluctose) 30 gm PO ONCE PRN PRN Reason: Hypoglycemia Stop: 04/14/17 16:18 Heparin Sodium (Porcine) (Heparin) 4,000 unit IVP Q6HR PRN PRN Reason: SEE COMMENTS Stop: 04/14/17 12:14 Last Admin: 10/13/16 22:20 Dose: 4,000 unit Heparin Sodium (Porcine) (Heparin) 2,000 unit IVP Q6H PRN PRN Reason: SEE COMMENTS Stop: 04/14/17 12:14 Heparin Sodium/Dextrose (Heparin 25,000 Unit/500 Ml D5w) 25,000 unit in 500 mls @ 20 mls/hr IVC .Q24H [facility]; 9.416 UNIT/KG/HR PRN Reason: Protocol Stop: 04/14/17 12:16 Last Titration: 10/14/16 09:49 Dose: 15.06 unit/kg/hr, 32 mls/hr Ceftriaxone Sodium 1,000 mg/ (Dextrose) 100 mls @ 200 mls/hr IVPB DAILY [facility] Stop: 04/15/17 09:01 Last Admin: 10/14/16 08:59 Dose: 200 mls/hr Dextrose (Dextrose 5%) 1,000 mls @ 100 mls/hr IVC .Q10H PRN PRN Reason: HYPOGLYCEMIA Stop: 04/14/17 16:18 Amiodarone HCl/Dextrose (Amiodarone Drip Premix 360mg/200ml) 360 mg in 200 mls @ 16.667 mls/hr IVC CONT [facility] PRN Reason: 0.5 MG/MIN Stop: 04/14/17 23:46 Last Admin: 10/14/16 05:57 Dose: 0.5 mg/min, 16.7 mls/hr Piperacillin Sod/Tazobactam (Sod 3.375 gm/ Dextrose) 100 mls @ 25 mls/hr IVPB Q8HR [facility] PRN Reason: Protocol Stop: 04/15/17 01:01 Last Admin: 10/14/16 09:00 Dose: 25 mls/hr Vancomycin HCl 1,750 mg/ (Dextrose) 500 mls @ 333.34 mls/hr IVPB Q24H [facility] Stop: 04/15/17 01:01 Last Infusion: 10/14/16 03:43 Dose: Infused Insulin Human Lispro (Humalog) 0 units SQ HS [facility] PRN Reason: Protocol Stop: 04/14/17 21:01 Last Admin: 10/13/16 20:50 Dose: 3 units Insulin Human Lispro (Humalog) 0 units SQ TIDAC [facility] PRN Reason: Protocol Stop: 04/14/17 16:31 Last Admin: 10/14/16 08:41 Dose: Not Given Metoprolol Tartrate (Lopressor) 25 mg PO BID [facility] Stop: 04/15/17 21:01 Morphine Sulfate (Morphine Sulfate) 2 mg IVP Q4HR PRN PRN Reason: Severe Pain (7-10) Stop: 04/14/17 10:31 Naloxone HCl (Narcan) 0.4 mg IVP Q2MIN PRN PRN Reason: Opioid Reversal Stop: 04/14/17 10:31 Nicotine (Nicoderm) 21 mg TD DAILY PRN; Protocol PRN Reason: Nicotine Cravings Stop: 04/14/17 10:35 Olanzapine (Zyprexa Zydis) 2.5 mg PO HS [facility] Stop: 04/14/17 21:01 Last Admin: 10/13/16 20:55 Dose: 2.5 mg Ondansetron HCl (Zofran) 4 mg IVP Q8HR PRN PRN Reason: Nausea And Vomiting Stop: 04/14/17 10:31 - Imaging and Cardiology Echo: report reviewed Other Results: 12 hour tele: avg [id number] afib/flutter - EKG Interpretation EKG results cardiology: personally reviewed Consult Discharge Plan - Plan Referrals: [facility] [Primary Care Provider] -
[2016-10-14 11:04] LABS: ABG Base Excess 0.5 mEq/L (-2.0 to 3.0); ABG HCO3 24.5 mEQ/L (21-27); ABG Oxygen Saturation 100 % (95-98); ABG PCO2 36 mmHg (35-45); ABG PH 7.44 pH Units (7.32-7.45); ABG PO2 163 mmHg (85-104); ABG TCO2 25.6 mEq/L (20-26)
[2016-10-14 11:05] LABS: Blood Gas FiO2 40 %
--- NOTE | 2016-10-14 12:17 | Electrocardiograph Report ---
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
--- NOTE | 2016-10-14 16:02 | Electrocardiograph Report ---
[place] [id number] Test Date: 2016-10-13 Pat Name: Zac Squires Department: 102 Room: 2N08 Gender: M [employer] Attendant: : 1940 Requested By: Conner Madison Order Number: [id number] Reading MD: Nicolas Salamanca Measurements Intervals [place] Rate: 141 P: 40 IN: 79 QRS: -1 QRSD: 183 T: 181 QT: 340 QTc: 422 Interpretive Statements SINUS TACHYCARDIA POSSIBLE ATRIAL FLUTTER LEFT BUNDLE BRANCH BLOCK Electronically Signed On 10-14-2016 16:00:39 EDT by Nicolas Salamanca
--- NOTE | 2016-10-14 16:03 | Electrocardiograph Report ---
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
--- NOTE | 2016-10-14 18:05 | Internal Med Progress Note ---
Date of Encounter: 10/14/16 Time of Encounter: 18:01 - Assessment and plan (1) Acute systolic (congestive) heart failure Current Visit: Yes Status: Acute (2) COPD exacerbation Current Visit: Yes Status: Acute (3) CKD (chronic kidney disease) stage 3, GFR 30-59 ml/min Current Visit: Yes Status: Acute (4) Diabetes 1.5, managed as type 2 Current Visit: Yes Status: Acute (5) NSTEMI (non-ST elevated myocardial infarction) Current Visit: Yes Status: Acute (6) Dementia associated with other underlying disease Current Visit: Yes Status: Chronic Qualifiers: Dementia behavioral disturbance: without behavioral disturbance Qualified Code(s): F02.80 - Dementia in other diseases classified elsewhere without behavioral disturbance (7) Hypertension Current Visit: No Status: Chronic Qualifiers: Hypertension type: essential hypertension Qualified Code(s): I10 - Essential (primary) hypertension (8) Dyslipidemia Current Visit: No Status: Chronic (9) Atrial fibrillation with rapid ventricular response Current Visit: Yes Status: Acute (10) Pericardial effusion Current Visit: Yes Status: Acute (11) SIRS (systemic inflammatory response syndrome) Current Visit: Yes Status: Acute - Subjective Interval history: Mr. 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 He is admitted with A. fib RVR and elevated cardiac enzymes in the range of non-ST elevation GA. He also has congestive heart failure and echocardiogram this morning showed ejection fraction of only 25-30% . Beside that he has COPD exacerbation and he is currently on BiPAP. The suspicion that patient also has some underlying sepsis though source was not confirmed. Cultures are pending. He is on currently vancomycin and Zosyn. With underlying CKD there is a concern of vancomycin to be continued on not but I noted this morning her creatinine has actually improved therefore I think for now we can cover vancomycin and Zosyn especially because white count has a started coming down. Cardiology has seen the patient and put him on amiodarone IV and beta blockers with IV heparin. His respiratory rate is quite high in the range of 30 therefore I will obtain an ABG which showed decent results. Due to underlying dementia and also audible comorbidity I think we will watch him closely but will not make any changes in his medication. Echocardiogram showed moderate to severe pericardial effusion and cardiology plans to repeat the echocardiogram and couple of days but has also advice was not to diurese him. We will leave the management of cardiac issues including heart rate A. fib and CHF and diuresis to cardiology this patient and would rather focus on COPD and his dementia. Patient also has diabetes hypertension and dyslipidemia. - Constitutional Vitals: Temp Pulse Resp BP Pulse Ox 97.9 F 99 24 129/116 100 10/14/16 16:25 10/14/16 17:00 10/14/16 16:25 10/14/16 15:12 10/14/16 16:25 General appearance: Present: disheveled, mild distress Exam: Patient has BiPAP breathing heavily and does not answer any questions but does withdraw to pain stimulus. I am not sure about his baseline status considering history of dementia and parkinsonism and schizoid personality I do not expect a normal baseline. Exam is nonfocal as no plantars and he is moving all extremities - Head Head exam: Present: atraumatic, normocephalic - Eye Eye exam: Present: PERRL, conjuntiva pink, sclera anicteric Pupils: Present: PERRL - Neck Neck exam general surgery: Present: supple, trachea midline. Absent: lymphadenopathy - Respiratory Respiratory exam: Present: CTAB. Absent: accessory muscle use, rales, rhonchi, wheezes - Cardiovascular Cardiovascular exam: Present: RRR, +S1, +S2. Absent: diastolic murmur, gallop, rubs, systolic murmur - GI/Abdominal GI/Abdominal exam: Present: normal bowel sounds, soft, no peritoneal signs. Absent: distended, tenderness - Extremities Exam Extremities exam: Present: pedal edema, warm, radial pulses palpable and symetrical. Absent: calf tenderness, cyanotic - Neurological Exam Neurological exam: Present: no focal deficits. Absent: pronater drift, facial droop, speech deficit Additional comments: Discussion is confused but able to move all extremities and is downward bilaterally he did not answer any of my questions - Skin Skin exam: Present: dry, intact Internal Medicine: Result - Labs CBC & Chem 7: 10/14/16 09:53 10/14/16 09:53 Labs: Short CBC 10/14/16 10/14/16 Range/Units 04:12 09:53 WBC 9.7 10.8 (4.3-11.1) K/mcL Hgb 11.0 L D 11.3 L (12.9-16.9) g/dL Hct 35.1 L 34.0 L (37.5-50.1) % Plt Count 193 231 (140-400) K/mcL Neutrophils # 7.6 8.6 (1.6-8.9) K/mcL BMP 10/14/16 10/14/16 05:37 09:53 Sodium 138 136 Potassium 4.0 3.8 Chloride 103 103 Carbon Dioxide 23 22 BUN 51 H 50 H Creatinine 1.59 H 1.42 H Glucose 196 H 152 H Calcium 8.6 8.4 L Cardiac Enzymes 10/13/16 10/14/16 10/14/16 Range/Units 19:12 01:35 09:53 Troponin I 1.99 H* 1.89 H* 1.21 H* (0-0.03) ng/mL Liver Function 10/14/16 Range/Units 05:37 Total Bilirubin 0.8 (0.2-1.2) mg/dL AST 16 (5-34) Units/L ALT < 6 (0-55) Units/L Alkaline Phosphatase 87 (38-126) Units/L Albumin 2.8 L (3.5-5.0) g/dL Urine 10/14/16 Range/Units 02:17 Urine Color Yellow (Yellow) Urine Clarity Cloudy A (Clear) Urine pH 5.5 (5.0-8.0) pH Units Ur Specific [place] 1.012 (1.010-1.025) Urine Protein 30 H (Neg-Trace) mg/dL Urine Glucose (UA) Normal (Normal) mg/dL - ABG Interpretation ABG results: ABG ABG pH 7.44 pH Units (7.32-7.45) 10/14/16 10:54 ABG pCO2 36 mmHg (35-45) 10/14/16 10:54 ABG pO2 163 mmHg (85-104) H 10/14/16 10:54 ABG O2 Saturation 100 % (95-98) H 10/14/16 10:54 PT/INR, D-dimer PT 16.0 Seconds (9.4-12.1) H 10/14/16 04:12 Consult Discharge Plan - Plan Referrals: [facility],PC[facility] [Primary Care Provider] -
[2016-10-14] MEDS: OLANZapine 5 MG TAB.RAPDIS PO SCH (22:59)
[2016-10-15] MEDS: Piperacillin/Tazobactam 3.375 GM in D5% in Water (Mini-Bag+) 100 ML IVPB SCH ×2 (01:00→08:43)
[2016-10-15 02:12] LABS: Basophils % 0.3 %; Eosinophils # 0.2 K/mcL (0.0-0.6); Hematocrit 33.3 % (37.5-50.1); Hemoglobin 10.7 g/dL (12.9-16.9); Immature Granulocytes % 0.8 % (0-4); Lymphocytes % 9.5 %; Mean Corpuscular HGB Conc 32.1 g/dL (31.6-35.5); Mean Corpuscular Hemoglobin 29.4 pg (28.0-33.3); Mean Corpuscular Volume 91.5 fL (83.0-100.0); Mean Platelet Volume 11.3 fL (9.4-12.4); Monocytes # 0.7 K/mcL (0.0-1.3); Monocytes % 6.9 %; Neutrophils # 8.6 K/mcL (1.6-8.9); Platelet Count 255 K/mcL (140-400); Red Blood Count 3.64 M/mcL (4.19-5.50); Red Cell Distribution Width 13.8 % (11.5-14.5); Segmented Neutrophils % 80.5 %
[2016-10-15 02:21] LABS: Alanine Aminotransferase 6 Units/L (0-55); Albumin 2.6 g/dL (3.5-5.0); Albumin/Globulin Ratio 0.8 (1.1-2.2); Alkaline Phosphatase 85 Units/L (38-126); Aspartate Amino Transferase 28 Units/L (5-34); BUN/Creatinine Ratio 33 (6-26); Bilirubin,Total 0.7 mg/dL (0.2-1.2); Blood Urea Nitrogen 45 mg/dL (8-26); Calcium 8.4 mg/dL (8.6-10.8); Carbon Dioxide 23 mEq/L (19-29); Chloride 102 mEq/L (98-109); Globulin 3.3 g/dL (2.4-3.5); Glucose 183 mg/dL (70-99); Osmolality,Calculated 294 (280-300); Sodium 134 mEq/L (136-145); Total Protein 5.9 g/dL (6.0-8.3); eGFR For African Americans > 60 (> 60); eGFR For Non-African Americans 50 (> 60)
[2016-10-15] MEDS: Ipratropium/Albuterol Neb 3 ML IH SCH (04:27)
[2016-10-15] MEDS: Amiodarone Premix 360 MG/200 ML BAG IVC SCH ×2 (05:02→16:46)
[2016-10-15] MEDS: Vancomycin 1,750 MG in D5% in Water 500 ML IVPB SCH (05:07)
[2016-10-15] MEDS: Heparin 25,000 UNIT/500 ML D5W 25,000 UNIT/500 ML MLS IVC SCH ×2 (05:56→13:28)
[2016-10-15] MEDS: Famotidine 20 MG/2 ML VIAL IVP SCH ×2 (06:48→16:36)
[2016-10-15] MEDS: Insulin LISPRO 300 UNITS/3 ML VIAL SQ SCH ×4 (08:50→20:54)
[2016-10-15] MEDS: Furosemide 40 MG/4 ML VIAL IVP SCH ×2 (08:58→20:56)
[2016-10-15] MEDS: Carbidopa/Levodopa 25/100 TABLET PO SCH ×3 (08:59→21:01)
[2016-10-15] MEDS: Aspirin 81 MG TAB.CHEW PO SCH (08:59)
[2016-10-15] MEDS: Ipratropium Neb 0.5 MG NEBULIZER IH SCH ×4 (09:29→22:01)
[2016-10-15] MEDS: Levalbuterol Neb 0.63 MG/3 ML IH SCH ×4 (09:29→22:01)
--- NOTE | 2016-10-15 10:42 | Cardiology Progress Note ---
Date of Encounter: 10/15/16 Time of Encounter: 10:30 Assessment and Plan (1) Elevated troponin Current Visit: Yes Status: Acute Patient presents with elevated troponin in setting of GRANT on CKD, sepsis, and afib/flutter with RVR. This likely represents demand ischemia. He has known CAD having undergone PCI to LCx in 2011 at [facility] , EF at that time reportedly 19%. TTE: EF 25-30%, severely dilated LA, mild AR/MR, moderate to large pericardial effusion without tamponade. Continue asa, statin, plavix and betablocker. Recommend continuation of IV heparin gtt for at least 48 hours. Code status DNRCC-A DNI; patient has baseline dementia. Recommendations for medical therapy discussed with Dr. Kuhn and guardian on 10/13/16 who agreed. No indications for cardiac rehab at this time. (2) Atrial fibrillation and flutter Current Visit: Yes Status: Acute Suspect new diagnosis. He initially presented with atrial flutter with transient LBBB which was previously documented in 2014. Avg HR 129 overnight, presently low 100's upon exam, afib. Recommend rate control strategy, will increase betablocker to BID dosing, continue amiodarone gtt. Avoid CCB given hx of cardiomyopathy. CHA2Ds Vasc= 5. Poor long-term candidate for AC d/t hx of frequent falls, poor functional status, and dementia. Continue heparin gtt for now, will further review with Dr. Barnes. On asa and plavix. (3) Congestive heart failure Current Visit: Yes Status: Acute Has history of cardiomyopathy, presumed ischemic. Reported EF 19% at [facility] in 2011. TTE: EF 25-30%. Continue lopressor for now, recommend changing to Toprol XL when BP and HR improved. No ACEi/ARB d/t CKD. Avoid diuresis d/t effusion. Strict I&O, daily weights, and Na restriction diet. Qualifiers: Congestive heart failure type: systolic Congestive heart failure chronicity : acute on chronic Qualified Code(s): I50.23 - Acute on chronic systolic ( congestive) heart failure (4) Pericardial effusion Current Visit: Yes Status: Acute Patient has a moderate pericardial effusion on CT chest. BP stable, adequate urine output. HR low 100's, afib, upon exam. TTE 10/13/16: LVEF 25-30%, severely dilated LA, mild AR/MR, moderate to large circumferential pericardial effusion without tamponade. Discussed with Dr. Barnes, continue to monitor for now. Repeat TTE in 2 days to re -evaluate effusion--ordered placed to repeat in AM. Discussion w patient/family: The assessment and plan as outlined above was discussed with the patient and/or family members who expressed understanding and agreement. All questions were answered. Thank you for involving us in the care of your patient. Please call with any questions. The patient will be discussed and reviewed with Dr. Barnes; changes to be made accordingly. Subjective Principal diagnosis: Sepsis, afib/flutter Interval history: Seen and examined. 1:1 sitter at bedside; continues to be combative per bedside RN. Patient has baseline dementia, AMS. Family/guardian not present at beside. Objective Vital Signs, Last 4 Hours Temp Pulse Resp BP Pulse Ox 10/15/16 10:01 98 130/69 10/15/16 09:08 99 123/84 10/15/16 09:00 113 18 123/84 92 10/15/16 08:05 114 113/70 10/15/16 08:00 117 18 113/70 92 10/15/16 07:05 97.4 F L 124 24 97/82 89 General: Other (patient will not communciate ) HEENT: Atraumatic, Normocephaly Cardiac: Other (irregularly irregular) Lungs: Normal Breath Sounds Abdomen: Soft Skin: No rashes noted on visualized skin Musculoskeletal: No Chest Wall Tenderness Extremities: No Edema, Normal Pulses Results 10/15/16 01:44 10/15/16 01:44 Lab Results 10/14/16 10/14/16 10/14/16 16:03 22:42 22:45 WBC Hgb Hct Plt Count APTT 45.4 H D 47.9 H Sodium Potassium Chloride Carbon Dioxide BUN Creatinine Glucose Calcium Magnesium 1.8 Total Bilirubin AST ALT Alkaline Phosphatase Troponin I 10/14/16 10/15/16 10/15/16 22:45 01:44 01:44 WBC 10.7 Hgb 10.7 L Hct 33.3 L Plt Count 255 APTT Sodium 134 L Potassium 4.0 Chloride 102 Carbon Dioxide 23 BUN 45 H Creatinine 1.37 H Glucose 183 H Calcium 8.4 L Magnesium Total Bilirubin 0.7 AST 28 ALT 6 Alkaline Phosphatase 85 Troponin I 0.73 H* Active Medications Acetaminophen (Tylenol) 650 mg PO Q6HR PRN PRN Reason: Mild Pain (1-3) Stop: 04/14/17 10:35 Aspirin (Aspirin) 81 mg PO DAILY [facility] Stop: 04/14/17 10:46 Last Admin: 10/15/16 08:59 Dose: 81 mg Atorvastatin Calcium (Lipitor) 40 mg PO HS [facility] Stop: 04/14/17 10:46 Last Admin: 10/14/16 22:59 Dose: 40 mg Benztropine Mesylate (Cogentin) 1 mg PO TID [facility] Stop: 04/14/17 15:01 Last Admin: 10/15/16 08:59 Dose: 1 mg Buspirone HCl (Buspar) 5 mg PO TID [facility] Stop: 04/14/17 15:01 Last Admin: 10/15/16 09:00 Dose: 5 mg Carbidopa/Levodopa (Sinemet) 1 each PO TID [facility] Stop: 04/14/17 15:01 Last Admin: 10/15/16 08:59 Dose: 1 each Clopidogrel Bisulfate (Plavix) 75 mg PO DAILY [facility] Stop: 04/14/17 10:46 Last Admin: 10/15/16 09:00 Dose: 75 mg Dextrose/Water (Dextrose 50% (Syg)) 25 ml IVP AD PRN PRN Reason: Hypoglycemia Stop: 04/14/17 16:18 Docusate Sodium (Colace) 100 mg PO DAILY [facility] PRN Reason: Protocol Stop: 04/15/17 09:01 Last Admin: 10/15/16 09:00 Dose: 100 mg Famotidine (Pepcid) 10 mg IVP Q12HR [facility] Stop: 04/14/17 18:01 Last Admin: 10/15/16 06:48 Dose: 10 mg Furosemide (Lasix) 40 mg IVP BID [facility] Stop: 04/14/17 21:01 Last Admin: 10/15/16 08:58 Dose: 40 mg Glucagon (Glucagen) 1 mg IM ONCE PRN PRN Reason: Hypoglycemia Stop: 04/14/17 16:18 Glucose (Gluctose) 15 gm PO ONCE PRN PRN Reason: Hypoglycemia Stop: 04/14/17 16:18 Glucose (Gluctose) 30 gm PO ONCE PRN PRN Reason: Hypoglycemia Stop: 04/14/17 16:18 Guaifenesin (Mucinex) 600 mg PO BID [facility] Stop: 04/16/17 09:01 Last Admin: 10/15/16 09:00 Dose: 600 mg Heparin Sodium (Porcine) (Heparin) 4,000 unit IVP Q6HR PRN PRN Reason: SEE COMMENTS Stop: 10/15/16 12:14 Last Admin: 10/13/16 22:20 Dose: 4,000 unit Heparin Sodium (Porcine) (Heparin) 2,000 unit IVP Q6H PRN PRN Reason: SEE COMMENTS Stop: 10/15/16 12:14 Heparin Sodium/Dextrose (Heparin 25,000 Unit/500 Ml D5w) 25,000 unit in 500 mls @ 19.966 mls/hr IVC .Q24H [facility]; 9.4 UNIT/KG/HR PRN Reason: Protocol Stop: 10/15/16 12:16 Last Titration: 10/15/16 09:02 Dose: 18.83 unit/kg/hr, 40 mls/hr Dextrose (Dextrose 5%) 1,000 mls @ 100 mls/hr IVC .Q10H PRN PRN Reason: HYPOGLYCEMIA Stop: 04/14/17 16:18 Amiodarone HCl/Dextrose (Amiodarone Drip Premix 360mg/200ml) 360 mg in 200 mls @ 16.667 mls/hr IVC CONT [facility] PRN Reason: 0.5 MG/MIN Stop: 04/14/17 23:46 Last Infusion: 10/15/16 09:01 Dose: 0.5 mg/min, 16.667 mls/hr Insulin Human Lispro (Humalog) 0 units SQ HS [facility] PRN Reason: Protocol Stop: 04/14/17 21:01 Last Admin: 10/14/16 22:59 Dose: Not Given Insulin Human Lispro (Humalog) 0 units SQ TIDAC [facility] PRN Reason: Protocol Stop: 04/14/17 16:31 Last Admin: 10/15/16 08:50 Dose: 8 units Ipratropium [place] (Atrovent Neb) 0.5 mg IH [id number] [facility] Stop: 04/16/17 10:01 Last Admin: 10/15/16 09:29 Dose: Not Given Levalbuterol HCl (Xopenex) 0.63 mg IH [id number] [facility] Stop: 04/16/17 10:01 Last Admin: 10/15/16 09:29 Dose: Not Given Metoprolol Tartrate (Lopressor) 50 mg PO BID [facility] Stop: 04/16/17 21:01 Morphine Sulfate (Morphine Sulfate) 2 mg IVP Q4HR PRN PRN Reason: Severe Pain (7-10) Stop: 04/14/17 10:31 Last Admin: 10/14/16 20:36 Dose: 2 mg Naloxone HCl (Narcan) 0.4 mg IVP Q2MIN PRN PRN Reason: Opioid Reversal Stop: 04/14/17 10:31 Nicotine (Nicoderm) 21 mg TD DAILY PRN; Protocol PRN Reason: Nicotine Cravings Stop: 04/14/17 10:35 Olanzapine (Zyprexa Zydis) 2.5 mg PO HS [facility] Stop: 04/14/17 21:01 Last Admin: 10/14/16 22:59 Dose: 2.5 mg Ondansetron HCl (Zofran) 4 mg IVP Q8HR PRN PRN Reason: Nausea And Vomiting Stop: 04/14/17 10:31 - Imaging and Cardiology Echo: report reviewed Other Results: avg FA=[id number], HR 80s-90s upon exam. - EKG Interpretation EKG results cardiology: personally reviewed Consult Discharge Plan - Plan [facility]errals: [facility] [Primary Care Provider] -
[2016-10-15] MEDS ORDERED: Aminoglycoside Consult 1 EACH MC ONE (15:00)
--- NOTE | 2016-10-15 16:26 | Electrocardiograph Report ---
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
[2016-10-15] MEDS: *HR* Heparin 5,000 UNIT/ML VIAL SQ SCH (16:29)
--- NOTE | 2016-10-15 18:09 | Internal Med Progress Note ---
Date of Encounter: 10/15/16 Time of Encounter: 10:15 - Assessment and plan (1) Atrial fibrillation with rapid ventricular response Current Visit: Yes Status: Acute Assessment and plan: patient presents with shortness of breath and was found in afib/aflutter with rvr. he is a [facility] resident and is bedridden. Appreciate cardiology input. heart rate is better controlled 100s-120s. continue beta-[place]inee, amiodaron drip. avoid CCB due to systolic HF. continue asa and plavix. CHADs- VASC at 5. Poor candidate to chronic anticoagulation. echocardiogram: EF 25-30%, severely dilated LA, mild MR, mild AR, moderate to large pericardial effusion without tamponade. (2) Pericardial effusion Current Visit: Yes Status: Acute Assessment and plan: echocardiogram showed moderate to large pericardial effusion without tamponade. Appreciate cardiology input. repeat echo. (3) Acute respiratory failure with hypoxemia Current Visit: Yes Status: Acute Assessment and plan: secondary to afib with rvr, copd exacerbation, ?pericardial effusion, systolic heart failure. 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 required BIPAP overnight. tolerating well 2L NC. slowly improving. continue BIPAP overnight, oxygen, amiodaron drip, beta blockers, Mucinex, stop albuterol , start levalbuterol and continue ipratropium, and IV Lasix. Stop antibiotics given no signs of infection. (4) Systolic heart failure Current Visit: Yes Status: Chronic Assessment and plan: EF 25%. IV Lasix. Fluid restriction. continue bb. Qualifiers: Heart failure chronicity: chronic Qualified Code(s): I50.22 - Chronic systolic (congestive) heart failure (5) COPD exacerbation Current Visit: Yes Status: Acute Assessment and plan: Plan as in acute respiratory failure. (6) CKD (chronic kidney disease) stage 3, GFR 30-59 ml/min Current Visit: Yes Status: Chronic Assessment and plan: at baseline. avoid nephrotoxic agents as possible. (7) Coronary artery disease Current Visit: No Status: Chronic Qualifiers: Coronary Disease-Associated Artery/Lesion type: lime artery [place] vs. transplanted heart: lime heart Associated angina: without angina Qualified Code(s): I25.10 - Atherosclerotic heart disease of lime coronary artery without angina pectoris (8) Elevated troponin Current Visit: Yes Status: Acute Assessment and plan: Peak troponin at 1.99. Likely secondary to demand ischemia. - Subjective Interval history: patient is non-verbal. he has advance dementia. - Constitutional Vitals: Temp Pulse Resp BP Pulse Ox 98.2 F 102 18 95/67 99 10/15/16 16:10 10/15/16 17:00 10/15/16 17:00 10/15/16 17:00 10/15/16 16:16 General appearance: Present: cooperative, disheveled, pleasant, no acute distress, answers questions appropriately Exam: patient is sleeping, he seems comfortable. sitter at bedside, she reports that patient was very agitated earlier this morning. - Eye Eye exam: Present: PERRL, sclera anicteric - Respiratory Respiratory exam: Present: decreased breath sounds (in lower lung mulligan.) - Cardiovascular Cardiovascular exam: Present: irregular rhythm, tachycardia - GI/Abdominal GI/Abdominal exam: Present: normal bowel sounds, soft. Absent: distended, tenderness - Extremities Exam Extremities exam: Present: pedal edema Internal Medicine: Result - Labs CBC & Chem 7: 10/15/16 01:44 10/15/16 01:44 Labs: Short CBC 10/15/16 Range/Units 01:44 WBC 10.7 (4.3-11.1) K/mcL Hgb 10.7 L (12.9-16.9) g/dL Hct 33.3 L (37.5-50.1) % Plt Count 255 (140-400) K/mcL Neutrophils # 8.6 (1.6-8.9) K/mcL BMP 10/15/16 01:44 Sodium 134 L Potassium 4.0 Chloride 102 Carbon Dioxide 23 BUN 45 H Creatinine 1.37 H Glucose 183 H Calcium 8.4 L Cardiac Enzymes 10/14/16 Range/Units 22:45 Troponin I 0.73 H* (0-0.03) ng/mL Liver Function 10/15/16 Range/Units 01:44 Total Bilirubin 0.7 (0.2-1.2) mg/dL AST 28 (5-34) Units/L ALT 6 (0-55) Units/L Alkaline Phosphatase 85 (38-126) Units/L Albumin 2.6 L (3.5-5.0) g/dL - ABG Interpretation ABG results: ABG ABG pH 7.44 pH Units (7.32-7.45) 10/14/16 10:54 ABG pCO2 36 mmHg (35-45) 10/14/16 10:54 ABG pO2 163 mmHg (85-104) H 10/14/16 10:54 ABG O2 Saturation 100 % (95-98) H 10/14/16 10:54 PT/INR, D-dimer PT 16.0 Seconds (9.4-12.1) H 10/14/16 04:12 - Impressions Impressions Chest X-Ray 10/15/16 08:26 IMPRESSION: Cardiomegaly. Interval improvement in pulmonary edema. D/ / Annette Blanchard MD / Annette Blanchard MD Interpreting Provider: Annette Blanchard MD Consult Discharge Plan - Plan [facility]errals: [facility] [Primary Care Provider] -
[2016-10-15] MEDS: OLANZapine 5 MG TAB.RAPDIS PO SCH (20:55)
[2016-10-15] MEDS ORDERED: *HR* LORazepam 2 MG/ML VIAL IVP ONE (22:39)
[2016-10-16] MEDS: *HR* Heparin 5,000 UNIT/ML VIAL SQ SCH ×4 (02:09→23:23)
[2016-10-16] MEDS: Ipratropium Neb 0.5 MG NEBULIZER IH SCH ×4 (04:49→22:27)
[2016-10-16] MEDS: Levalbuterol Neb 0.63 MG/3 ML IH SCH ×4 (04:49→22:27)
[2016-10-16 04:58] LABS: Albumin 2.8 g/dL (3.5-5.0); Albumin/Globulin Ratio 0.7 (1.1-2.2); Bilirubin,Total 0.7 mg/dL (0.2-1.2); Calcium 9.2 mg/dL (8.6-10.8); Globulin 3.8 g/dL (2.4-3.5); Potassium 4.3 mEq/L (3.5-4.5); Total Protein 6.6 g/dL (6.0-8.3)
[2016-10-16 05:00] LABS: Basophils % 0.3 %; Eosinophils # 0.1 K/mcL (0.0-0.6); Eosinophils % 0.7 %; Hemoglobin 11.9 g/dL (12.9-16.9); Lymphocytes % 9.1 %; Mean Corpuscular HGB Conc 32.2 g/dL (31.6-35.5); Mean Corpuscular Volume 90.2 fL (83.0-100.0); Mean Platelet Volume 11.6 fL (9.4-12.4); Monocytes # 1.1 K/mcL (0.0-1.3); Monocytes % 9.6 %; Neutrophils # 8.8 K/mcL (1.6-8.9); Platelet Count 275 K/mcL (140-400); Red Cell Distribution Width 13.9 % (11.5-14.5); Segmented Neutrophils % 79.3 %
[2016-10-16 05:01] LABS: Magnesium 1.9 mg/dL (1.6-2.6); Phosphorous 4.5 mg/dL (2.3-4.7)
[2016-10-16] MEDS: Amiodarone Premix 360 MG/200 ML BAG IVC SCH ×2 (05:07→17:45)
[2016-10-16] MEDS: Famotidine 20 MG/2 ML VIAL IVP SCH (05:08)
[2016-10-16] MEDS: Aspirin 81 MG TAB.CHEW PO SCH (09:11)
[2016-10-16] MEDS: Carbidopa/Levodopa 25/100 TABLET PO SCH ×3 (09:12→20:26)
[2016-10-16] MEDS: Insulin LISPRO 300 UNITS/3 ML VIAL SQ SCH ×4 (09:17→20:21)
--- NOTE | 2016-10-16 11:24 | Cardiology Progress Note ---
Date of Encounter: 10/16/16 Time of Encounter: 11:00 Assessment and Plan (1) Elevated troponin Current Visit: Yes Status: Acute Patient presents with elevated troponin in setting of GRANT on CKD, sepsis, and afib/flutter with RVR. This likely represents demand ischemia. He has known CAD having undergone PCI to LCx in 2011 at [facility] , EF at that time reportedly 19%. TTE: EF 25-30%, severely dilated LA, mild AR/MR, moderate to large pericardial effusion without tamponade. Continue asa, statin, plavix and betablocker. Recommend continuation of IV heparin gtt for at least 48 hours. Code status DNRCC-A DNI; patient has baseline dementia. Recommendations for medical therapy discussed with Dr. Kuhn and guardian on 10/13/16 who agreed. No indications for cardiac rehab at this time. (2) Atrial fibrillation and flutter Current Visit: Yes Status: Acute Suspect new diagnosis. He initially presented with atrial flutter with transient LBBB which was previously documented in 2014. Avg HR 126 overnight, presently low 100's upon exam, aflutter. Suspect difficulty with HR control as he continues to be combative. Recommend rate control strategy, betablocker increased yesterday, continue amiodarone gtt. Avoid CCB given hx of cardiomyopathy. CHA2Ds Vasc= 5. Poor long-term candidate for AC d/t hx of frequent falls, poor functional status, and dementia. Continue heparin gtt for now, will further review with Dr. Barnes. On asa and plavix. (3) Congestive heart failure Current Visit: Yes Status: Acute Has history of cardiomyopathy, presumed ischemic. Reported EF 19% at [facility] in 2011. TTE: EF 25-30%. Continue lopressor for now, recommend changing to Toprol XL when BP and HR improved. No ACEi/ARB d/t CKD. Avoid diuresis d/t effusion. Strict I&O, daily weights, and Na restriction diet. Qualifiers: Congestive heart failure type: systolic Congestive heart failure chronicity : acute on chronic Qualified Code(s): I50.23 - Acute on chronic systolic ( congestive) heart failure (4) Pericardial effusion Current Visit: Yes Status: Acute Patient has a moderate pericardial effusion on CT chest. BP stable, adequate urine output. HR low 100's, afib, upon exam. TTE 10/13/16: LVEF 25-30%, severely dilated LA, mild AR/MR, moderate to large circumferential pericardial effusion without tamponade. Discussed with Dr. Barnes, continue to monitor for now. Recommend repeat TTE to re-evaluate effusion--psychology technician unable to complete this AM due to pt. combative, will attempt this afternoon. Discussion w patient/family: The assessment and plan as outlined above was discussed with the patient and/or family members who expressed understanding and agreement. All questions were answered. Thank you for involving us in the care of your patient. Please call with any questions. The patient will be discussed and reviewed with Dr. Barnes; changes to be made accordingly. Subjective Principal diagnosis: Sepsis, afib/flutter Interval history: Seen and examined. 1:1 sitter at bedside; continues to be combative per bedside RN and sitter. Patient has baseline dementia, AMS. Family/guardian not present at beside. Breath sounds worsened today, noted to be coarse throughout. Objective Vital Signs, Last 4 Hours Temp Pulse Resp BP Pulse Ox 10/16/16 11:06 25 95 10/16/16 11:00 98.0 F 127 32 101/64 94 10/16/16 09:58 131 25 102/72 95 10/16/16 09:01 137 28 132/79 92 10/16/16 08:35 140 10/16/16 07:59 140 32 130/82 94 General: Other (does not communicate) HEENT: Atraumatic, Normocephaly Cardiac: Other (irregularly irregular) Lungs: Other (Coarse breath sounds throughout) Neuro: Other (Disoriented x3) Abdomen: Soft Skin: No rashes noted on visualized skin Musculoskeletal: No Chest Wall Tenderness Extremities: No Edema, Normal Pulses Results 10/16/16 04:10 10/16/16 04:10 Lab Results 10/15/16 10/16/16 10/16/16 12:28 04:10 04:10 WBC 11.1 Hgb 11.9 L Hct 37.0 L Plt Count 275 APTT 87.0 H D Sodium 138 Potassium 4.3 Chloride 104 Carbon Dioxide 25 BUN 46 H Creatinine 1.62 H Glucose 185 H Calcium 9.2 Magnesium Total Bilirubin 0.7 AST 19 ALT 8 Alkaline Phosphatase 97 10/16/16 04:10 WBC Hgb Hct Plt Count APTT Sodium Potassium Chloride Carbon Dioxide BUN Creatinine Glucose Calcium Magnesium 1.9 Total Bilirubin AST ALT Alkaline Phosphatase Active Medications Acetaminophen (Tylenol) 650 mg PO Q6HR PRN PRN Reason: Mild Pain (1-3) Stop: 04/14/17 10:35 Aspirin (Aspirin) 81 mg PO DAILY [facility] Stop: 04/14/17 10:46 Last Admin: 10/16/16 09:11 Dose: 81 mg Atorvastatin Calcium (Lipitor) 40 mg PO HS [facility] Stop: 04/14/17 10:46 Last Admin: 10/15/16 20:56 Dose: 40 mg Benztropine Mesylate (Cogentin) 1 mg PO TID [facility] Stop: 04/14/17 15:01 Last Admin: 10/16/16 09:12 Dose: 1 mg Buspirone HCl (Buspar) 5 mg PO TID [facility] Stop: 04/14/17 15:01 Last Admin: 10/16/16 09:11 Dose: 5 mg Carbidopa/Levodopa (Sinemet) 1 each PO TID [facility] Stop: 04/14/17 15:01 Last Admin: 10/16/16 09:12 Dose: 1 each Clopidogrel Bisulfate (Plavix) 75 mg PO DAILY [facility] Stop: 04/14/17 10:46 Last Admin: 10/16/16 09:12 Dose: 75 mg Dextrose/Water (Dextrose 50% (Syg)) 25 ml IVP AD PRN PRN Reason: Hypoglycemia Stop: 04/14/17 16:18 Docusate Sodium (Colace) 100 mg PO DAILY [facility] PRN Reason: Protocol Stop: 04/15/17 09:01 Last Admin: 10/16/16 09:12 Dose: 100 mg Famotidine (Pepcid) 10 mg IVP Q12HR [facility] Stop: 04/14/17 18:01 Last Admin: 10/16/16 05:08 Dose: 10 mg Glucagon (Glucagen) 1 mg IM ONCE PRN PRN Reason: Hypoglycemia Stop: 04/14/17 16:18 Glucose (Gluctose) 15 gm PO ONCE PRN PRN Reason: Hypoglycemia Stop: 04/14/17 16:18 Glucose (Gluctose) 30 gm PO ONCE PRN PRN Reason: Hypoglycemia Stop: 04/14/17 16:18 Guaifenesin (Mucinex) 600 mg PO BID [facility] Stop: 04/16/17 09:01 Last Admin: 10/16/16 09:11 Dose: 600 mg Heparin Sodium (Porcine) (Heparin) 5,000 unit SQ Q8H [facility] Stop: 04/16/17 16:01 Last Admin: 10/16/16 09:11 Dose: 5,000 unit Dextrose (Dextrose 5%) 1,000 mls @ 100 mls/hr IVC .Q10H PRN PRN Reason: HYPOGLYCEMIA Stop: 04/14/17 16:18 Amiodarone HCl/Dextrose (Amiodarone Drip Premix 360mg/200ml) 360 mg in 200 mls @ 16.667 mls/hr IVC CONT [facility] PRN Reason: 0.5 MG/MIN Stop: 04/14/17 23:46 Last Admin: 10/16/16 05:07 Dose: 0.5 mg/min, 16.667 mls/hr Insulin Human Lispro (Humalog) 0 units SQ HS [facility] PRN Reason: Protocol Stop: 04/14/17 21:01 Last Admin: 10/15/16 20:54 Dose: Not Given Insulin Human Lispro (Humalog) 0 units SQ TIDAC [facility] PRN Reason: Protocol Stop: 04/14/17 16:31 Last Admin: 10/16/16 09:17 Dose: 4 units Ipratropium [place] (Atrovent Neb) 0.5 mg IH [id number] [facility] Stop: 04/16/17 10:01 Last Admin: 10/16/16 11:05 Dose: 0.5 mg Levalbuterol HCl (Xopenex) 0.63 mg IH [id number] [facility] Stop: 04/16/17 10:01 Last Admin: 10/16/16 11:05 Dose: 0.63 mg Metoprolol Tartrate (Lopressor) 50 mg PO BID [facility] Stop: 04/16/17 21:01 Last Admin: 10/16/16 09:11 Dose: 50 mg Morphine Sulfate (Morphine Sulfate) 2 mg IVP Q4HR PRN PRN Reason: Severe Pain (7-10) Stop: 04/14/17 10:31 Last Admin: 10/14/16 20:36 Dose: 2 mg Naloxone HCl (Narcan) 0.4 mg IVP Q2MIN PRN PRN Reason: Opioid Reversal Stop: 04/14/17 10:31 Nicotine (Nicoderm) 21 mg TD DAILY PRN; Protocol PRN Reason: Nicotine Cravings Stop: 04/14/17 10:35 Olanzapine (Zyprexa Zydis) 2.5 mg PO HS [facility] Stop: 04/14/17 21:01 Last Admin: 10/15/16 20:55 Dose: 2.5 mg Ondansetron HCl (Zofran) 4 mg IVP Q8HR PRN PRN Reason: Nausea And Vomiting Stop: 04/14/17 10:31 - Imaging and Cardiology Echo: report reviewed Other Results: 12 hour tele: avg LL=[id number] - EKG Interpretation EKG results cardiology: personally reviewed Consult Discharge Plan - Plan [facility]errals: [facility] [Primary Care Provider] -
[2016-10-16 15:03] LABS: Calcium 8.6 mg/dL (8.6-10.8); Potassium 4.4 mEq/L (3.5-4.5)
[2016-10-16] MEDS: Famotidine 20 MG TABLET PO SCH (15:29)
--- NOTE | 2016-10-16 20:17 | Internal Med Progress Note ---
Date of Encounter: 10/16/16 Time of Encounter: 09:30 - Assessment and plan (1) Atrial fibrillation with rapid ventricular response Current Visit: Yes Status: Acute Assessment and plan: patient presents with shortness of breath and was found in afib/aflutter with rvr. he is a [facility] resident and is bedridden. Appreciate cardiology input. heart rate in the 130s. continue beta-destinee, amiodaron drip. avoid CCB due to systolic HF. continue asa and plavix. CHADs-VASC at 5. Poor candidate to chronic anticoagulation. echocardiogram: EF 25-30%, severely dilated LA, mild MR, mild AR, moderate to large pericardial effusion without tamponade. (2) Pericardial effusion Current Visit: Yes Status: Acute Assessment and plan: echocardiogram showed moderate to large pericardial effusion without tamponade. Appreciate cardiology input. repeat echo today. (3) Acute respiratory failure with hypoxemia Current Visit: Yes Status: Acute Assessment and plan: secondary to afib with rvr, copd exacerbation, ?pericardial effusion, systolic heart failure. 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 required BIPAP overnight. tolerating well 2L NC. slowly improving. continue BIPAP overnight, oxygen, amiodaron drip, beta blockers, Mucinex, levalbuterol ipratropium, and IV Lasix. (4) Systolic heart failure Current Visit: Yes Status: Chronic Assessment and plan: EF 25%. IV Lasix. Fluid restriction. continue bb. Qualifiers: Heart failure chronicity: chronic Qualified Code(s): I50.22 - Chronic systolic (congestive) heart failure (5) COPD exacerbation Current Visit: Yes Status: Acute Assessment and plan: Plan as in acute respiratory failure. (6) CKD (chronic kidney disease) stage 3, GFR 30-59 ml/min Current Visit: Yes Status: Chronic Assessment and plan: at baseline. avoid nephrotoxic agents as possible. (7) Coronary artery disease Current Visit: No Status: Chronic Qualifiers: Coronary Disease-Associated Artery/Lesion type: [place] artery [place] vs. transplanted heart: [place] heart Associated angina: without angina Qualified Code(s): I25.10 - Atherosclerotic heart disease of [place] coronary artery without angina pectoris (8) Elevated troponin Current Visit: Yes Status: Acute Assessment and plan: Peak troponin at 1.99. Likely secondary to demand ischemia. - Subjective Interval history: patient is non-verbal. he has advance dementia. - Constitutional Vitals: Temp Pulse Resp BP Pulse Ox 97.6 F 133 38 112/77 91 10/16/16 19:03 10/16/16 20:04 10/16/16 20:04 10/16/16 20:04 10/16/16 20:04 General appearance: Present: cooperative, disheveled, pleasant, no acute distress, answers questions appropriately - Neck Neck exam general surgery: Present: supple, trachea midline. Absent: lymphadenopathy - Respiratory Respiratory exam: Present: rhonchi - Cardiovascular Cardiovascular exam: Present: irregular rhythm, tachycardia - GI/Abdominal GI/Abdominal exam: Present: normal bowel sounds, soft. Absent: distended, tenderness - Extremities Exam Extremities exam: Present: pedal edema (Ankle edema.) - Back Exam Back exam: Absent: CVA tenderness (L), CVA tenderness (R) - Neurological Exam Additional comments: Patient is sleeping. He does move his extremities without any purpose. - Skin Skin exam: Absent: rash Internal Medicine: Result - Labs CBC & Chem 7: 10/16/16 04:10 10/16/16 14:24 Labs: Short CBC 10/16/16 Range/Units 04:10 WBC 11.1 (4.3-11.1) K/mcL Hgb 11.9 L (12.9-16.9) g/dL Hct 37.0 L (37.5-50.1) % Plt Count 275 (140-400) K/mcL Neutrophils # 8.8 (1.6-8.9) K/mcL BMP 10/16/16 10/16/16 04:10 14:24 Sodium 138 135 L Potassium 4.3 4.4 Chloride 104 103 Carbon Dioxide 25 22 BUN 46 H 54 H Creatinine 1.62 H 1.67 H Glucose 185 H 177 H Calcium 9.2 8.6 Liver Function 10/16/16 Range/Units 04:10 Total Bilirubin 0.7 (0.2-1.2) mg/dL AST 19 (5-34) Units/L ALT 8 (0-55) Units/L Alkaline Phosphatase 97 (38-126) Units/L Albumin 2.8 L (3.5-5.0) g/dL - ABG Interpretation ABG results: ABG ABG pH 7.44 pH Units (7.32-7.45) 10/14/16 10:54 ABG pCO2 36 mmHg (35-45) 10/14/16 10:54 ABG pO2 163 mmHg (85-104) H 10/14/16 10:54 ABG O2 Saturation 100 % (95-98) H 10/14/16 10:54 PT/INR, D-dimer PT 16.0 Seconds (9.4-12.1) H 10/14/16 04:12 Consult Discharge Plan - Plan [facility]errals: [facility] [Primary Care Provider] -
[2016-10-16] MEDS: OLANZapine 5 MG TAB.RAPDIS PO SCH (20:27)
[2016-10-17 01:30] LABS: Basophils % 0.2 %; Hematocrit 35.7 % (37.5-50.1); Hemoglobin 11.8 g/dL (12.9-16.9); Immature Granulocytes % 1.5 % (0-4); Lymphocytes # 0.5 K/mcL (0.6-4.6); Lymphocytes % 4.2 %; Mean Corpuscular HGB Conc 33.1 g/dL (31.6-35.5); Mean Corpuscular Hemoglobin 29.6 pg (28.0-33.3); Mean Corpuscular Volume 89.5 fL (83.0-100.0); Mean Platelet Volume 11.5 fL (9.4-12.4); Monocytes % 8.7 %; Neutrophils # 10.1 K/mcL (1.6-8.9); Platelet Count 283 K/mcL (140-400); Red Blood Count 3.99 M/mcL (4.19-5.50); Red Cell Distribution Width 13.9 % (11.5-14.5); Segmented Neutrophils % 85.4 %
[2016-10-17 01:46] LABS: Albumin 2.8 g/dL (3.5-5.0); Albumin/Globulin Ratio 0.8 (1.1-2.2); Calcium 8.5 mg/dL (8.6-10.8); Globulin 3.4 g/dL (2.4-3.5); Potassium 4.7 mEq/L (3.5-4.5); Total Protein 6.2 g/dL (6.0-8.3)
[2016-10-17 01:48] LABS: Bilirubin,Total 1.3 mg/dL (0.2-1.2)
[2016-10-17] MEDS: Ipratropium Neb 0.5 MG NEBULIZER IH SCH ×4 (04:48→22:24)
[2016-10-17] MEDS: Levalbuterol Neb 0.63 MG/3 ML IH SCH ×4 (04:48→22:24)
[2016-10-17] MEDS: Aspirin 81 MG TAB.CHEW PO SCH (08:11)
[2016-10-17] MEDS: Carbidopa/Levodopa 25/100 TABLET PO SCH ×3 (08:11→20:57)
[2016-10-17] MEDS: Famotidine 20 MG TABLET PO SCH ×2 (08:11→16:13)
[2016-10-17] MEDS: *HR* Heparin 5,000 UNIT/ML VIAL SQ SCH ×3 (08:12→23:43)
[2016-10-17] MEDS: Insulin LISPRO 300 UNITS/3 ML VIAL SQ SCH ×4 (08:15→20:46)
[2016-10-17 09:26] LABS: Albumin 2.9 g/dL (3.5-5.0); Albumin/Globulin Ratio 0.8 (1.1-2.2); Bilirubin,Direct 0.7 mg/dL (0.0-0.5); Bilirubin,Indirect 0.7 mg/dL (0.0-1.2); Bilirubin,Total 1.4 mg/dL (0.2-1.2); Globulin 3.6 g/dL (2.4-3.5); Total Protein 6.5 g/dL (6.0-8.3)
--- NOTE | 2016-10-17 09:59 | Cardiology Progress Note ---
Date of Encounter: 10/17/16 Time of Encounter: 09:30 Assessment and Plan (1) Atrial fibrillation and flutter Current Visit: Yes Status: Acute Per cardiology: -Suspect new diagnosis. -He initially presented with atrial flutter with transient LBBB which was previously documented in 2015. -Avg HR 126 overnight, aflutter. Suspect difficult to rate control due to multiple co-morbid conditions. -Recommend rate control strategy. On beta destinee. Amiodarone drip currently running at 0.5mg/min. -CHA2Ds Vasc= 5. Poor long-term candidate for AC d/t hx of frequent falls, poor functional status, and dementia. On asa and plavix. -BPs 100-110s systolic. -Will increase beta destinee to 100mg BID. Recommend titrating as able. -Amiodarone drip ordered to be stopped yesterday per primary service. Will discuss with regarding oral amiodarone. -Cardiology will sign off and will follow in outpatient setting. Follow up set. (2) Congestive heart failure Current Visit: Yes Status: Acute Per cardiology: -Has history of cardiomyopathy, presumed ischemic. Reported EF 19% at [facility] in 2011. -TTE: EF 25-30%. -Continue lopressor for now, recommend changing to Toprol XL when BP and HR improved. No ACEi/ARB d/t CKD. Avoid diuresis d/t effusion. -Strict I&O, daily weights, and Na restriction diet. -Recommend changing lopressor to toprol when able. Qualifiers: Congestive heart failure type: systolic Congestive heart failure chronicity : acute on chronic Qualified Code(s): I50.23 - Acute on chronic systolic ( congestive) heart failure (3) Elevated troponin Current Visit: Yes Status: Acute Per cardiology: -Patient presents with elevated troponin in setting of GRANT on CKD, sepsis, and afib/flutter with RVR. This likely represents demand ischemia. -He has known CAD having undergone PCI to LCx in 2011 at [facility], EF at that time reportedly 19%. -TTE: EF 25-30%, severely dilated LA, mild AR/MR, moderate to large pericardial effusion without tamponade. -Continue asa, statin, plavix and betablocker. -Code status DNRCC-A DNI; patient has baseline dementia. Recommendations for medical therapy discussed with Dr. Kuhn and guardian on 10/13/16 who agreed. -No indications for cardiac rehab at this time. (4) Pericardial effusion Current Visit: Yes Status: Acute Per cardiology: -Patient has a moderate pericardial effusion on CT chest. -BP stable, adequate urine output. HR low 100's, afib, upon exam. -TTE 10/13/16: LVEF 25-30%, severely dilated LA, mild AR/MR, moderate to large circumferential pericardial effusion without tamponade. -Repeat TTE 10/16/16 with moderate to large pericardial effusion without evidence of tamponade. -Cardiology will continue to follow in outpatient setting. Discussion w patient/family: The assessment and plan as outlined above was discussed with the patient who expressed understanding and agreement. All questions were answered. Thank you for involving us in the care of your patient. Please call with any questions. Discussed and reviewed with . Subjective Principal diagnosis: Sepsis, afib/flutter Interval history: Patient seen today. 1:1 sitter at bedside. States he has been more lethargic today. Patient arouses to tactile stimuli. Patient on Bipap. Objective Vital Signs, Last 4 Hours Temp Pulse Resp BP Pulse Ox 10/17/16 09:00 128 26 140/87 93 10/17/16 08:00 97.7 F 126 26 118/76 95 10/17/16 07:00 125 28 94 10/17/16 06:20 108/74 98 General: Other (Arouses to tactile stimuli. ) HEENT: Atraumatic, Normocephaly, Mucus Membranes Moist Neck: No JVD Cardiac: Other (Irregularly, irregular. Tachycardic. ) Lungs: Other (Expiratory wheezes noted throughout. ) Neuro: Other (Arouses to tactile stimuli. ) Abdomen: Soft, Non-Tender Skin: No rashes noted on visualized skin Musculoskeletal: No Chest Wall Tenderness Extremities: No Clubbing, No Cyanosis, No Edema, Normal Pulses Results 10/17/16 01:05 10/17/16 01:05 Lab Results Active Medications Aspirin (Aspirin) 81 mg PO DAILY [facility] Stop: 04/14/17 10:46 Last Admin: 10/17/16 08:11 Dose: 81 mg Benztropine Mesylate (Cogentin) 1 mg PO TID [facility] Stop: 04/14/17 15:01 Last Admin: 10/17/16 08:11 Dose: 1 mg Buspirone HCl (Buspar) 5 mg PO TID [facility] Stop: 04/14/17 15:01 Last Admin: 10/17/16 08:11 Dose: 5 mg Carbidopa/Levodopa (Sinemet) 1 each PO TID [facility] Stop: 04/14/17 15:01 Last Admin: 10/17/16 08:11 Dose: 1 each Clopidogrel Bisulfate (Plavix) 75 mg PO DAILY [facility] Stop: 04/14/17 10:46 Last Admin: 10/17/16 08:11 Dose: 75 mg Dextrose/Water (Dextrose 50% (Syg)) 25 ml IVP AD PRN PRN Reason: Hypoglycemia Stop: 04/14/17 16:18 Docusate Sodium (Colace) 100 mg PO DAILY [facility] PRN Reason: Protocol Stop: 04/15/17 09:01 Last Admin: 10/17/16 08:12 Dose: Not Given Famotidine (Pepcid) 10 mg PO BIDAC [facility] Stop: 04/17/17 16:31 Last Admin: 10/17/16 08:11 Dose: 10 mg Glucagon (Glucagen) 1 mg IM ONCE PRN PRN Reason: Hypoglycemia Stop: 04/14/17 16:18 Glucose (Gluctose) 15 gm PO ONCE PRN PRN Reason: Hypoglycemia Stop: 04/14/17 16:18 Glucose (Gluctose) 30 gm PO ONCE PRN PRN Reason: Hypoglycemia Stop: 04/14/17 16:18 Guaifenesin (Mucinex) 600 mg PO BID [facility] Stop: 04/16/17 09:01 Last Admin: 10/17/16 08:10 Dose: 600 mg Heparin Sodium (Porcine) (Heparin) 5,000 unit SQ Q8H [facility] Stop: 04/16/17 16:01 Last Admin: 10/17/16 08:12 Dose: 5,000 unit Dextrose (Dextrose 5%) 1,000 mls @ 100 mls/hr IVC .Q10H PRN PRN Reason: HYPOGLYCEMIA Stop: 04/14/17 16:18 Insulin Human Lispro (Humalog) 0 units SQ HS [facility] PRN Reason: Protocol Stop: 04/14/17 21:01 Last Admin: 10/16/16 20:21 Dose: Not Given Insulin Human Lispro (Humalog) 0 units SQ TIDAC [facility] PRN Reason: Protocol Stop: 04/14/17 16:31 Last Admin: 10/17/16 08:15 Dose: 6 units Ipratropium [place] (Atrovent Neb) 0.5 mg IH [id number] [facility] Stop: 04/16/17 10:01 Last Admin: 10/17/16 04:48 Dose: 0.5 mg Levalbuterol HCl (Xopenex) 0.63 mg IH [id number] [facility] Stop: 04/16/17 10:01 Last Admin: 10/17/16 04:48 Dose: Not Given Metoprolol Tartrate (Lopressor) 100 mg PO BID [facility] Stop: 04/18/17 21:01 Naloxone HCl (Narcan) 0.4 mg IVP Q2MIN PRN PRN Reason: Opioid Reversal Stop: 04/14/17 10:31 Nicotine (Nicoderm) 21 mg TD DAILY PRN; Protocol PRN Reason: Nicotine Cravings Stop: 04/14/17 10:35 Ondansetron HCl (Zofran) 4 mg IVP Q8HR PRN PRN Reason: Nausea And Vomiting Stop: 04/14/17 10:31 - Imaging and Cardiology Chest Xray: report reviewed Echo: report reviewed - EKG Interpretation EKG results cardiology: other (Telemetry reviewed with average HR 126, atrial fibrillation with LBBB. PVCs noted.) Consult Discharge Plan - Plan [facility]errals: [facility] [Primary Care Provider] -
[2016-10-17 16:23] LABS: Albumin 2.9 g/dL (3.5-5.0); Albumin/Globulin Ratio 0.8 (1.1-2.2); Bilirubin,Direct 0.9 mg/dL (0.0-0.5); Bilirubin,Indirect 0.4 mg/dL (0.0-1.2); Bilirubin,Total 1.3 mg/dL (0.2-1.2); Globulin 3.6 g/dL (2.4-3.5); Total Protein 6.5 g/dL (6.0-8.3)
--- NOTE | 2016-10-17 17:18 | Internal Med Progress Note ---
Date of Encounter: 10/17/16 Time of Encounter: 11:15 - Assessment and plan (1) Elevated LFTs Current Visit: Yes Status: Acute Assessment and plan: ASt went up to 1513 and alt up to 203. elevated lft and wbc could be secondary to amiodarone toxicity repeat lfts now and in the afternoon. stop amiodarone, statin and zyprexa. check liver us. (2) Atrial fibrillation with rapid ventricular response Current Visit: Yes Status: Acute Assessment and plan: patient presents with shortness of breath and was found in afib/aflutter with rvr. he is a [facility] resident and is bedridden. Appreciate cardiology input. heart rate in the 130s. increase beta-destinee. stop amiodaron drip due to elevated lfts. avoid CCB due to systolic HF. continue asa and plavix. CHADs- VASC at 5. Poor candidate to chronic anticoagulation. echocardiogram: EF 25-30%, severely dilated LA, mild MR, mild AR, moderate to large pericardial effusion without tamponade. (3) Pericardial effusion Current Visit: Yes Status: Acute Assessment and plan: echocardiogram showed moderate to large pericardial effusion without tamponade. Appreciate cardiology input. repeat echo showed unchanged pericardial effusion, no signs of tamponade. f/u as outpatient/ (4) Acute respiratory failure with hypoxemia Current Visit: Yes Status: Acute Assessment and plan: secondary to afib with rvr, copd exacerbation, ?pericardial effusion, systolic heart failure. 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 continue BIPAP overnight and 2L NC while awake. still tachypneic. stop amiodaron drip due to elevated lfts. increase beta blockers, continue Mucinex, levalbuterol ipratropium, and resume low dose IV Lasix. (5) Systolic heart failure Current Visit: Yes Status: Chronic Assessment and plan: EF 25%. low dose IV Lasix. Fluid restriction. continue bb. Qualifiers: Heart failure chronicity: chronic Qualified Code(s): I50.22 - Chronic systolic (congestive) heart failure (6) COPD exacerbation Current Visit: Yes Status: Acute Assessment and plan: Plan as in acute respiratory failure. (7) CKD (chronic kidney disease) stage 3, GFR 30-59 ml/min Current Visit: Yes Status: Chronic Assessment and plan: at baseline. avoid nephrotoxic agents as possible. (8) Coronary artery disease Current Visit: No Status: Chronic Qualifiers: Coronary Disease-Associated Artery/Lesion type: [place] artery [place] vs. transplanted heart: [place] heart Associated angina: without angina Qualified Code(s): I25.10 - Atherosclerotic heart disease of [place] coronary artery without angina pectoris (9) Elevated troponin Current Visit: Yes Status: Acute Assessment and plan: Peak troponin at 1.99. Likely secondary to demand ischemia. - Subjective Interval history: patient did say hi back to me this morning and ask me if he was going to . - Constitutional Vitals: Temp Pulse Resp BP Pulse Ox 97.3 F L 127 33 127/83 94 10/17/16 11:13 10/17/16 15:48 10/17/16 15:51 10/17/16 15:51 10/17/16 15:51 General appearance: Present: cooperative, disheveled, pleasant, no acute distress, answers questions appropriately - Neck Neck exam general surgery: Present: supple, trachea midline. Absent: lymphadenopathy - Respiratory Respiratory exam: Present: rhonchi - Cardiovascular Cardiovascular exam: Present: irregular rhythm, tachycardia - GI/Abdominal GI/Abdominal exam: Present: normal bowel sounds, soft. Absent: distended, tenderness - Extremities Exam Extremities exam: Present: pedal edema (2+ Le edema) - Back Exam Back exam: Absent: CVA tenderness (L), CVA tenderness (R) - Neurological Exam Additional comments: awake. moves his extremities. Internal Medicine: Result - Labs CBC & Chem 7: 10/17/16 01:05 10/17/16 01:05 Labs: Short CBC 10/17/16 Range/Units 01:05 WBC 11.8 H (4.3-11.1) K/mcL Hgb 11.8 L (12.9-16.9) g/dL Hct 35.7 L (37.5-50.1) % Plt Count 283 (140-400) K/mcL Neutrophils # 10.1 H (1.6-8.9) K/mcL BMP 10/17/16 01:05 Sodium 133 L Potassium 4.7 H Chloride 100 Carbon Dioxide 19 BUN 67 H Creatinine 1.93 H Glucose 183 H Calcium 8.5 L Liver Function 10/17/16 10/17/16 10/17/16 Range/Units 01:05 08:48 08:48 Total Bilirubin 1.3 H D 1.4 H (0.2-1.2) mg/dL Direct Bilirubin 0.7 H (0.0-0.5) mg/dL GGT 144 H (12-64) Units/L AST 1513 H 1624 H (5-34) Units/L ALT 203 H 523 H (0-55) Units/L Alkaline Phosphatase 110 117 (38-126) Units/L Albumin 2.8 L 2.9 L (3.5-5.0) g/dL 10/17/16 Range/Units 15:57 Total Bilirubin 1.3 H (0.2-1.2) mg/dL Direct Bilirubin 0.9 H (0.0-0.5) mg/dL GGT (12-64) Units/L AST 1500 H (5-34) Units/L ALT (0-55) Units/L Alkaline Phosphatase 129 H (38-126) Units/L Albumin 2.9 L (3.5-5.0) g/dL - ABG Interpretation ABG results: ABG ABG pH 7.44 pH Units (7.32-7.45) 10/14/16 10:54 ABG pCO2 36 mmHg (35-45) 10/14/16 10:54 ABG pO2 163 mmHg (85-104) H 10/14/16 10:54 ABG O2 Saturation 100 % (95-98) H 10/14/16 10:54 PT/INR, D-dimer PT 16.0 Seconds (9.4-12.1) H 10/14/16 04:12 Consult Discharge Plan - Plan [facility]errals: [facility] [Primary Care Provider] -
[2016-10-17] MEDS: Metoprolol 100 MG TABLET PO SCH (20:57)
[2016-10-17] MEDS: Furosemide 20 MG/2 ML VIAL IVP SCH (20:57)
[2016-10-18] MEDS: Levalbuterol Neb 0.63 MG/3 ML IH SCH ×2 (05:18→10:15)
[2016-10-18] MEDS: Ipratropium Neb 0.5 MG NEBULIZER IH SCH ×2 (05:18→10:15)
[2016-10-18 06:07] LABS: Basophils # 0.1 K/mcL (0.0-0.2); Basophils % 0.3 %; Hematocrit 37.2 % (37.5-50.1); Hemoglobin 12.4 g/dL (12.9-16.9); Immature Granulocytes % 1.8 % (0-4); Lymphocytes # 0.6 K/mcL (0.6-4.6); Lymphocytes % 3.7 %; Mean Corpuscular HGB Conc 33.3 g/dL (31.6-35.5); Mean Corpuscular Hemoglobin 29.8 pg (28.0-33.3); Mean Corpuscular Volume 89.4 fL (83.0-100.0); Mean Platelet Volume 12.4 fL (9.4-12.4); Monocytes # 1.2 K/mcL (0.0-1.3); Monocytes % 7.5 %; Neutrophils # 13.9 K/mcL (1.6-8.9); Nucleated Red Blood Cells 0.2 /100 WBC (0); Platelet Count 261 K/mcL (140-400); Red Blood Count 4.16 M/mcL (4.19-5.50); Red Cell Distribution Width 14.6 % (11.5-14.5); Segmented Neutrophils % 86.7 %
[2016-10-18 06:14] LABS: Albumin 2.9 g/dL (3.5-5.0); Albumin/Globulin Ratio 0.8 (1.1-2.2); Bilirubin,Total 1.4 mg/dL (0.2-1.2); Calcium 8.5 mg/dL (8.6-10.8); Globulin 3.6 g/dL (2.4-3.5); Total Protein 6.5 g/dL (6.0-8.3)
[2016-10-18 06:16] LABS: Potassium 4.6 mEq/L (3.5-4.5)
[2016-10-18 06:18] LABS: Albumin 2.9 g/dL (3.5-5.0); Albumin/Globulin Ratio 0.8 (1.1-2.2); Bilirubin,Direct 0.8 mg/dL (0.0-0.5); Bilirubin,Indirect 0.7 mg/dL (0.0-1.2); Bilirubin,Total 1.5 mg/dL (0.2-1.2); Globulin 3.5 g/dL (2.4-3.5); Total Protein 6.4 g/dL (6.0-8.3)
[2016-10-18 07:42] VITALS: BP 105/62
--- NOTE | 2016-10-18 07:50 | Event Note ---
Date of Encounter: 10/18/16 Time of Encounter: 07:20 Palliative care was consulted regarding goals of care and possible hospice. I saw the patient and he is nonconversant. I did review the chart. Patient clearly is hospice eligible. I discussed the case with the social service coordinator for this gentleman, and hospice is already being arranged with the [facility]. He will go out today [facility] hosp[facility]. The patient's brother who is his guardian, will be around 11. I did offer to meet with him, however at this point after speaking with the social service coordinator there appears to be no need patient is already lined up for hospice, clearly meets the criteria, and has appropriate CODE STATUS. There is nothing further for palliative to offer on this case I discussed with the hospitalist and we will sign off.
[2016-10-18] MEDS ORDERED: Morphine Oral CONC 5 MG/0.25 ML ORAL.SYG PO PRN (07:54)
[2016-10-18] MEDS: *HR* Heparin 5,000 UNIT/ML VIAL SQ SCH (08:40)
[2016-10-18] MEDS: Furosemide 20 MG/2 ML VIAL IVP SCH ×2 (08:40→08:53)
--- NOTE | 2016-10-18 08:48 | Discharge Summary ---
Date of Encounter: 10/18/16 Time of Encounter: 08:40 - Discharge Diagnosis (1) Elevated LFTs Priority: Primary Status: Acute (2) Atrial fibrillation with rapid ventricular response Priority: Primary Status: Acute (3) Pericardial effusion Priority: Primary Status: Acute (4) Acute respiratory failure with hypoxemia Priority: Primary Status: Acute (5) Systolic heart failure Priority: Primary Status: Chronic Qualifiers: Heart failure chronicity: chronic Qualified Code(s): I50.22 - Chronic systolic (congestive) heart failure (6) Acute worsening of stage 3 chronic kidney disease Priority: Primary Status: Acute (7) COPD exacerbation Priority: Primary Status: Acute (8) Coronary artery disease Priority: Secondary Status: Chronic Qualifiers: Coronary Disease-Associated Artery/Lesion type: [place] artery [place] vs. transplanted heart: [place] heart Associated angina: without angina Qualified Code(s): I25.10 - Atherosclerotic heart disease of [place] coronary artery without angina pectoris (9) Elevated troponin Priority: Primary Status: Acute - Discharge Medications Home Medications: Clopidogrel Bisulfate [Plavix] 75 mg PO DAILY 04/02/15 [History] Aspirin 81 mg PO DAILY tab.chew 04/05/15 [Rx] Atorvastatin [Lipitor] 40 mg PO HS tablet 04/05/15 [Rx] Benztropine Mesylate 0.5 mg PO TID 10/13/16 [History] Buspirone HCl [Buspar] 10 mg PO BID 10/13/16 [History] Cholecalciferol (D-3) [Vitamin D] 1,000 unit PO DAILY 10/13/16 [History] Cyanocobalamin (B-12) [Vitamin B12] 1,000 mcg PO DAILY 10/13/16 [History] OLANZapine [Zyprexa] 2.5 mg PO HS 10/13/16 [History] Sennosides/Docusate Sodium [Senna-Docusate Sodium Tablet] 2 tab PO HS 10/13/16 [ History] Simethicone [Gas-X] 80 mg PO TIDWM 10/13/16 [History] Benztropine [Cogentin] 1 mg PO TID tab 10/18/16 [Rx] Buspirone HCl [Buspar] 5 mg PO TID tab 10/18/16 [Rx] Carbidopa/Levodopa 25/100 [Sinemet 25/100] 1 each PO TID tab 10/18/16 [Rx] Docusate [Colace] 100 mg PO DAILY PRN 10/18/16 [Rx] GuaiFENesin ER [Mucinex] 600 mg PO BID 10/18/16 [Rx] Ipratropium Neb [Atrovent Neb] 0.5 mg IH [id number] inh 10/18/16 [Rx] Levalbuterol Neb [Xopenex Neb] 0.63 mg IH [id number] 10/18/16 [Rx] Metoprolol [Lopressor] 100 mg PO BID tab 10/18/16 [Rx] Nicotine Patch [Nicoderm] 21 mg TD DAILY PRN 10/18/16 [Rx] Allergies/Adverse Reactions: Allergies No Known Allergies Allergy (Verified 10/13/16 11:01) Procedures/tests Complete & Pending: Procedures Performed prior 72 hours Category Date Time Status US liver [US] Routine Exams 10/17/16 07:19 Completed US abd pelvis doppler [US] Routine Ultrasound 10/17/16 Completed EV limited echocardiogram Routine Y 10/16/16 07:00 Completed Date of admission: 10/13/16 10:24 [facility] physician: [facility] Consults: 10/13/16 10:28 Consult to Cardiology [CONS] Stat Comment: Consulting Provider: Cardiology Gifty Reason for Consult: elevated troponin, arrythmia Call Completed: No 10/13/16 10:32 Consult to Nursery Supervisor [CONS] Routine Reason for SW Consult: Discharge planning 10/13/16 10:33 Consult to Physical Therapy [CONS] Routine Comment: Evaluate, develop and implement POC Reason for Consult: PT eval 10/18/16 07:00 Consult to Palliative Care [CONS] Routine Comment: Consulting Provider: Palliative Care Gifty Reason for Consult: advanced dementia. afib rvr. pericardial effusion. Call Completed: No - Patient Status Disposition: Hospice - Medical Facility Condition: Critical Functional capacity at discharge: bed bound Overall status at discharge: patient is not back to baseline - Discharge Instructions Instructions: Heart Failure (DC), Atrial Fibrillation (DC) Follow [facility] With: [facility] [Primary Care Provider] - - Diet and Activity Activity: wear oxygen at all times (BIPAP prn) Diet: diabetic diet (fluid restriction 1.8 liters per day) Interval History: patient is sleeping. he opens his eyes sees me and falls back asleep. Hospital course: Mr. Squires is a 75 year old male with past medical history of hypertension, diabetes, CAD, systolic heart failure, Parkinson disease, dementia and hyperlipidemia who presented with a chief complaint of shortness of breath. Patient was admitted with diagnosis of atrial fibrillation with rapid ventricular response and was started on amiodarone drip, beta destinee and lasix. Echocardiogram revealed LVEF 25%, severely dilated LA, moderate to large pericardial effusion without tamponade. He also required oxygen supplementation with nasal cannula and BiPAP to maintain adequate SaO2 levels. CT chest showed small bilateral pleural effusions, interlobular septal thickening, bilateral groundglass nodular opacities, cardiomegaly, scattered groundglass nodular opacities throughout both lungs, moderate sized pericardial effusion, 4.3 cm fusiform aneurysm of the ascending aorta. Patient developed liver toxicity due to amiodarone drip with an increase of LFTs up to 1600 AST and 500 ALT. Amiodarone drip was discontinued and his liver enzymes were trending down. His beta destinee was increased to control his heart rate. Lasix was held due to acute kidney injury. Repeat echocardiogram revealed persistent moderate to large pericardial effusion without tamponade. Given multiple medical problems that were not responding to medical therapy as well as poor functional, possibly including advanced dementia and bedridden for many years, hospice was offered. Family was agreeable. They verbalized understanding and agree with the plan. PLAN: hospice at [facility]. Lisinopril was held at discharge due to acute kidney injury. - Time Spent with Patient Total time spent providing and/or coordinating discharge services: - Constitutional Vitals: Temp Pulse Resp BP Pulse Ox 98.4 F 134 36 105/62 97 10/18/16 07:00 10/18/16 07:00 10/18/16 07:00 10/18/16 07:00 10/18/16 07:00 Exam: patient is sleeping. he is wearing bipap. - Respiratory Respiratory exam: Present: tachypnea - Cardiovascular Cardiovascular exam: Present: irregular rhythm, tachycardia - GI/Abdominal GI/Abdominal exam: Present: normal bowel sounds, soft. Absent: distended, tenderness - Extremities Exam Extremities exam: Present: pedal edema - Back Exam Back exam: Absent: CVA tenderness (L), CVA tenderness (R) - Neurological Exam Neurological exam: Present: alert, oriented X3, no focal deficits, strengths equal and symetr throughout. Absent: facial droop, speech deficit - Skin Skin exam: Absent: rash
--- NOTE | 2016-10-18 08:53 | Physician Discharge Referral ---
ExtendedCare Referral Info Transfer To: [facility]CF Provider in Charge: brittney Provider in Charge after Transfer: [facility]er Institutional Level of Care: Skilled - Diagnosis (1) Elevated LFTs Status: Acute (2) Atrial fibrillation with rapid ventricular response Status: Acute (3) Pericardial effusion Status: Acute (4) Acute respiratory failure with hypoxemia Status: Acute (5) Systolic heart failure Status: Chronic (6) Acute worsening of stage 3 chronic kidney disease Status: Acute (7) COPD exacerbation Status: Acute (8) Coronary artery disease Status: Chronic (9) Elevated troponin Status: Acute - Transfer Medications Home Medications: Clopidogrel Bisulfate [Plavix] 75 mg PO DAILY 04/02/15 [History] Aspirin 81 mg PO DAILY tab.chew 04/05/15 [Rx] Atorvastatin [Lipitor] 40 mg PO HS tablet 04/05/15 [Rx] Benztropine Mesylate 0.5 mg PO TID 10/13/16 [History] Buspirone HCl [Buspar] 10 mg PO BID 10/13/16 [History] Cholecalciferol (D-3) [Vitamin D] 1,000 unit PO DAILY 10/13/16 [History] Cyanocobalamin (B-12) [Vitamin B12] 1,000 mcg PO DAILY 10/13/16 [History] OLANZapine [Zyprexa] 2.5 mg PO HS 10/13/16 [History] Sennosides/Docusate Sodium [Senna-Docusate Sodium Tablet] 2 tab PO HS 10/13/16 [ History] Simethicone [Gas-X] 80 mg PO TIDWM 10/13/16 [History] Benztropine [Cogentin] 1 mg PO TID tab 10/18/16 [Rx] Buspirone HCl [Buspar] 5 mg PO TID tab 10/18/16 [Rx] Carbidopa/Levodopa 25/100 [Sinemet 25/100] 1 each PO TID tab 10/18/16 [Rx] Docusate [Colace] 100 mg PO DAILY PRN 10/18/16 [Rx] GuaiFENesin ER [Mucinex] 600 mg PO BID 10/18/16 [Rx] Ipratropium Neb [Atrovent Neb] 0.5 mg IH [id number] inh 10/18/16 [Rx] Levalbuterol Neb [Xopenex Neb] 0.63 mg IH [id number] 10/18/16 [Rx] Metoprolol [Lopressor] 100 mg PO BID tab 10/18/16 [Rx] Nicotine Patch [Nicoderm] 21 mg TD DAILY PRN 10/18/16 [Rx] Allergies/Adverse Reactions: Allergies No Known Allergies Allergy (Verified 10/13/16 11:01) - Respiratory Orders Oxygen / L per min (3L NC, BIPAP prn) Smoking Cessation: Smoking cessation has been advised. For more information, call the [place] Tobacco Quit Line at 3-296-TMDV-NOW. - Advance Directives Code Status: DNR-Comfort Care - Mobility Orders Bedrest - Rehabiliation Orders Rehab Potential: Poor - Treatments Skin tear care topically daily PRN per policy, May check for fecal impaction rectally daily PRN - Diet Orders No Added Salt (MAINOR) (fluid restriction 1.8 liters per day), No Concentrated Sweets, Cardiac CERTIFICATION: I certify that the transfer of the above named patient to an Extended Care Facility is necessary for the continuing treatment of the diagnosis listed. The above information is true and accurate reflection of patient's current condition. Confidential - Redisclosure prohibited without a patient's written consent.
[2016-10-18] MEDS: Insulin LISPRO 300 UNITS/3 ML VIAL SQ SCH (08:55)
[2016-10-18] MEDS: Aspirin 81 MG TAB.CHEW PO SCH (10:17)
[2016-10-18] MEDS: Famotidine 20 MG TABLET PO SCH (10:17)
[2016-10-18] MEDS: Metoprolol 100 MG TABLET PO SCH (10:18)
[2016-10-18] MEDS: Carbidopa/Levodopa 25/100 TABLET PO SCH (10:18)
== END 2016-10-18 12:16 | disposition hospice, inpatient (51) | DRG 291 ==
LOC: EMEROO 07:42 → 2NNU 10:24 → SUATTDRO 10:24 → 2NNU 11:33
PROVIDERS: ADMIT Family Medicine; ATTEND Internal Medicine